=== PATIENT | female | born 1960 | race Caucasian/White ===

== ENCOUNTER → 2017-08-15 | Outpatient (CLI) | payer OTHER ==
[~2017-08-15] MED LIST: ASPI81TA28 PO; ATEN-173 PO; BUSP15TA70 PO; FLUT0.15 NAE; LISI-729 PO; MULT-506 PO; OMEG10007 PO; SIMV20TA2 PO
[2017-08-15 09:47] LABS: ALBUMIN 3.8 gm/dl (3.4-5.0); ALT/SGPT 35 U/L (12-78); BLOOD UREA NITROGEN 11 mg/dl (7-18); CALCIUM 9.1 mg/dl (8.5-10.1); CARBON DIOXIDE 26 mmol/L (21-32); CHOLESTEROL 179 mg/dl (0-200); CREATININE 1.01 mg/dl (0.60-1.20); GLUCOSE,FASTING 98 mg/dl (70-99); SODIUM 140 mmol/L (136-145)
[2017-08-15 10:07] LABS: ALKALINE PHOSPHATASE 99 U/L (45-117); AST/SGOT 25 U/L (15-37); LDL CHOLESTEROL CALCULATED 112 mg/dl; TOTAL PROTEIN 6.9 gm/dl (6.4-8.2)
== END | disposition home or self-care (01) ==
LOC: C.LAB 08:42
PROVIDERS: ATTEND Physician Assistant
DX: Z00.00 Encounter for general adult medical examination without abnormal findings (principal); E78.5 Hyperlipidemia, unspecified

== ENCOUNTER 2020-09-18 08:37 | Inpatient (IN) ==
--- NOTE | 2020-09-18 08:58 | Emergency Department Note ---
Impression & Plan Pneumonia due to COVID-19 virus, Acute respiratory failure with hypoxia ED Provider Note CHIEF COMPLAINT: Covid +, cough and fatigue HISTORY OF PRESENTING ILLNESS: This is a 60-year-old female who presents to the emergency department by private vehicle with complaint of cough and fatigue over the past several days that has been getting progressively worse. The patient states that she first started developing symptoms about 9 days ago and tested positive for COVID-19 2 days later. She states that her cough has been keeping her up at night and she gets coughing spells where she starts to feel short of breath and dizzy, but she has not passed out. She denies any chest pain or chest tightness. She notes a very mild headache which is frontal, achy in nature, comes and goes, and she currently rates the pain 1/10. She notes that she has been having fairly persistent fevers as well, fever seem to be worse in the morning as high as 102, but seem to go down during the day and do respond to Tylenol and ibuprofen. Patient states that she called her PCP a few days ago about her symptoms and they started her on a Z-Yao which she has been taking. She notes a cough is still very bothersome, which is why she presents to the emergency department today. She last took Tylenol this morning around 6 AM. She has not been placed on any other medications for her symptoms. REVIEW OF SYSTEMS: A complete 10 point review of systems was reviewed with the patient with pertinent positives and negatives as per history of present illness. All else were negative. PAST MEDICAL HISTORY: Hypertension, hyperlipidemia, anxiety, chronic kidney disease, history of gastric ulcer, history of partial hysterectomy SOCIAL HISTORY: Lives at home, she denies tobacco use ALLERGIES: No known allergies PHYSICAL EXAM: CONSTITUTIONAL: Pleasant and cooperative. Nontoxic-appearing and in no acute distress. Well appearing and well nourished. HEENT: Normocephalic, atraumatic. NECK: Supple, full active range of motion without discomfort. RESPIRATORY: Diminished bilaterally with bibasilar crackles and scant wheezes heard on auscultation, no rhonchi or stridor. No tachypnea or labored breathing, no accessory muscle use. Equal expansion bilaterally. CARDIOVASCULAR: Regular rate and rhythm with no murmurs, rubs or gallops. Normal peripheral perfusion. No edema. GASTROINTESTINAL: Soft, nontender, nondistended. No palpable masses or HSM. Bowel sounds present in all quadrants. No CVA tenderness bilaterally. MUSCULOSKELETAL: Full range of motion of all joints without discomfort. INTEGUMENTARY: No rash or other significant dermatologic conditions noted. NEUROLOGIC: Alert and oriented X 4 with normal affect. Normal strength and sensation in all 4 extremities. Normal speech. Normal gait observed. ED COURSE AND MEDICAL DECISION MAKING: CC: Patient presenting with complaint of cough and fatigue, Covid-19 DIFFERENTIAL DIAGNOSIS: Includes, but not limited to COVID-19 infection, bronc hitis, pneumonia, pulmonary edema, pleural effusion, pulmonary embolism, acute coronary syndrome, asthma, among others. INTERPRETATION OF LABS: No leukocytosis, no anemia, normal platelets, no signif icant electrolyte abnormalities, normal renal function, elevated AST with otherwise normal liver enzymes. Troponin is negative. EKG INTERPRETATION: Shows normal sinus rhythm with a rate of 92 bpm, normal intervals, no ST elevation or depression, no ectopy, no significant change when compared to previous EKG from 01/06/2016 by my interpretation. MEDICATION RECONCILIATION: I attest that I have personally reviewed the patient's current medication list. INITIAL VITAL SIGNS REVIEW: I reviewed the patient's initial vital signs and interpret them as follows: T: Afebrile; BP: Normotensive; HR: Within normal limits; RR: Within normal limits; Pulse Ox: Within normal limits on room air. MDM SUMMARY: Patient was evaluated in room A4 at bedside, history and physical exam performed. Full COVID-19 precautions were followed. Patient is alert and oriented, no acute distress, resting calmly in stretcher. Patient is afebrile and nontoxic-appearing, does not appear to be dehydrated clinically. Patient does not appear to be clinically short of breath, though she has noted to have several coughing spells where she states that she feels short of breath. Her sats are noted to be 91 to 93% on room air on initial evaluation and she appears to have a normal respiratory effort. Cardiac monitoring: An order was placed for continuous cardiac monitoring. The monitor shows a rate of 81 bpm with normal sinus rhythm. The patient has been sick for at least 9 days and tested positive for COVID-19, I suspect this is the cause of her symptoms. Orders were placed for labs, DuoNeb treatment for cough and wheezing, p.o. prednisone 60 mg and Tessalon Perles 100 mg p.o. for coughing, EKG and chest x- ray to evaluate for cough and shortness of breath. Patient discussed with Dr. Lowery, who agrees with my assessment, plan, and disposition. Labs and imaging reviewed, labs are fairly unremarkable. Chest x-ray shows bilateral opacities consistent with viral pneumonia, which fits with her current COVID-19 infection. Nursing staff notified me that the patient dropped her oxygen level to 83% while ambulating to the bathroom and became visibly more short of breath. I did reassess the patient, she is now on 2 L nasal cannula and appears comfortable. I discussed CT imaging to rule out a blood clot, the patient was agreeable with this plan. CTA of the chest was reviewed and was negative for PE. Patient reassessed multiple times throughout ED stay, she has remained hemodynamically stable and feels significantly improved on the oxygen. The patient is short of breath on room air at rest, oxygen saturation is 83% with minimal exertion, patient is positive for COVID-19 and she requires oxygen. I discussed the options of admission versus discharge home with oxygen, the patient initially states that she prefers to go home. I spoke with Wilfrid, the solution design and analysis manager, who is arranging home oxygen for the patient. After talking with the patient again, she has changed her mind and feels she would rather be admitted. I spoke with Dr. Aburto, [facility] hospitalist, who agrees to admit the patient. The patient was stable at time of admission. The chart was completed utilizing kidthing Speech voice recognition software. Grammatical errors, random word insertions, pronoun errors, and incomplete sentences are an occasional consequence of this system due to software limitations, ambient noise, and hardware issues. Any formal questions or concerns about the content, text, or information contained within the body of this dictation should be directly addressed to the nurse practitioner for clarification. Past Med/Surg History Medical History (Updated 09/18/20 @ 16:04 by Mike Aburto MD) Anxiety Chronic kidney disease, stage 3 (moderate) COVID-19 (~09/11/20) History of gastric ulcer Hyperlipidemia Hypertension Seasonal allergies Surgical History History of hysterectomy PARTIAL S/P tonsillectomy 1998 Family History Mother Cardiac disorder Stroke Diabetes Myocardial infarction Brother Depression Diabetes Hypertension Father Prostate cancer Myocardial infarction Brother Solitary fibrous tumor Social History Smoking Status: Never smoker Hx Alcohol Use: Yes Alcohol type: other Alcohol Intake Frequency: Monthly or Less Hx Substance Use: No Preferred Language: Turkish Communication Ability: Effective Visual Impairment: No Limitations Hearing Ability: Normal Sales Representative Graphic Art Required: No Beliefs That Will Affect Care: None marital status: Legally Current Living Situation: Family and Other Current Living Situation Comment: LIVES WITH son current occupational status: employed current occupation: H[employer] RES[employer] Other Information That Helps Us Care for You: No Feels Safe at Home: Yes Safety Concerns: Feels Safe At This Time Dental Care, Regularly: Yes Physical Activity Frequency: Does not Exercise Seatbelt Use: always Sunscreen Use: No Assistive Devices: Glasses Allergies Allergies Allergy/AdvReac Type Severity Reaction Status Date / Time No Known Allergies Allergy Unverified 09/18/20 09:47 Home Meds Home Medications Medication Instructions Recorded Confirmed aspirin 81 mg tablet,delayed 81 mg PO HS 02/15/19 09/18/20 release fluticasone propionate 50 1 sprays INTNAS BID gm 02/15/19 09/18/20 mcg/actuation nasal spray,suspension omega-3 fatty acids 1 tab PO DAILY 02/15/19 09/18/20 Previous Rx's Medication Instructions Recorded buspirone 15 mg tablet 15 mg PO BID #180 tab 03/21/20 lisinopril 5 mg tablet 5 mg PO DAILY #90 tab 03/21/20 metoprolol succinate 50 mg 50 mg PO DAILY #90 tab 03/21/20 tablet,extended release 24 hr simvastatin 20 mg tablet 20 mg PO QPM #90 tab 03/21/20 azithromycin 250 mg tablet See Rx Instructions PO .COMPLEX #6 09/16/20 tab Results & Data (ED) Vital Signs Vital Signs - 24 hr 09/18/20 08:39 09/18/20 10:00 09/18/20 10:11 Temperature 37.4 C Temperature Source Oral Pulse Rate 81 Pulse Rate [Right] 84 76 Pulse Rate from SpO2 Sensor Pulse Rhythm [Right] Regular Pulse Strength [Right] Normal Respiratory Rate 18 17 20 Respiratory Effort / Characteristics Non-Labored Spontaneous Non-Labored Spontaneous Respiratory Depth Normal Respiratory Pattern Regular Blood Pressure 112/73 Blood Pressure [Left Arm] 130/69 Blood Pressure Mean 86 Blood Pressure Mean [Left Arm] 89 Blood Pressure Position [Left Arm] Lying Pulse Oximetry 91 94 92 Oxygen Delivery Method Room Air Room Air Room Air Oxygen Flow Rate Sepsis Recent Fever Within 48 Hours Yes Sepsis New/Unexplained Change in Mental Status N/A Sepsis Action Taken by Nursing No Action Required Oxygen Flow Rate - Titration Pulse Oximetry Post Tiitration 09/18/20 10:38 09/18/20 11:00 09/18/20 11:30 Temperature Temperature Source Pulse Rate 82 82 83 Pulse Rate [Right] Pulse Rate from SpO2 Sensor 82 83 84 Pulse Rhythm [Right] Pulse Strength [Right] Respiratory Rate 25 H 23 24 Respiratory Effort / Characteristics Respiratory Depth Respiratory Pattern Blood Pressure 130/69 131/66 118/77 Blood Pressure [Left Arm] Blood Pressure Mean 89 87 90 Blood Pressure Mean [Left Arm] Blood Pressure Position [Left Arm] Pulse Oximetry 91 92 90 Oxygen Delivery Method Oxygen Flow Rate Sepsis Recent Fever Within 48 Hours Sepsis New/Unexplained Change in Mental Status Sepsis Action Taken by Nursing Oxygen Flow Rate - Titration Pulse Oximetry Post Tiitration 09/18/20 11:59 09/18/20 12:00 09/18/20 12:30 Temperature Temperature Source Pulse Rate 83 84 Pulse Rate [Right] Pulse Rate from SpO2 Sensor 83 87 Pulse Rhythm [Right] Pulse Strength [Right] Respiratory Rate 20 23 Respiratory Effort / Characteristics Respiratory Depth Respiratory Pattern Blood Pressure 135/68 145/73 H Blood Pressure [Left Arm] Blood Pressure Mean 90 97 Blood Pressure Mean [Left Arm] Blood Pressure Position [Left Arm] Pulse Oximetry 83 L 93 97 Oxygen Delivery Method Room Air Oxygen Flow Rate 0 Sepsis Recent Fever Within 48 Hours Sepsis New/Unexplained Change in Mental Status Sepsis Action Taken by Nursing Oxygen Flow Rate - Titration 2 Pulse Oximetry Post Tiitration 93 09/18/20 12:56 09/18/20 13:00 09/18/20 14:00 Temperature Temperature Source Pulse Rate 90 93 H Pulse Rate [Right] 90 Pulse Rate from SpO2 Sensor 90 93 H Pulse Rhythm [Right] Regular Pulse Strength [Right] Normal Respiratory Rate 19 24 Respiratory Effort / Characteristics Non-Labored Spontaneous Respiratory Depth Normal Respiratory Pattern Regular Blood Pressure 169/93 H 145/87 H Blood Pressure [Left Arm] 138/71 Blood Pressure Mean 118 106 Blood Pressure Mean [Left Arm] 93 Blood Pressure Position [Left Arm] Lying Pulse Oximetry 96 95 92 Oxygen Delivery Method Nasal Cannula Nasal Cannula Oxygen Flow Rate 2 2 Sepsis Recent Fever Within 48 Hours Sepsis New/Unexplained Change in Mental Status Sepsis Action Taken by Nursing Oxygen Flow Rate - Titration Pulse Oximetry Post Tiitration 09/18/20 14:30 Temperature Temperature Source Pulse Rate 88 Pulse Rate [Right] Pulse Rate from SpO2 Sensor 88 Pulse Rhythm [Right] Pulse Strength [Right] Respiratory Rate 21 Respiratory Effort / Characteristics Respiratory Depth Respiratory Pattern Blood Pressure 138/71 Blood Pressure [Left Arm] Blood Pressure Mean 93 Blood Pressure Mean [Left Arm] Blood Pressure Position [Left Arm] Pulse Oximetry 90 Oxygen Delivery Method Oxygen Flow Rate Sepsis Recent Fever Within 48 Hours Sepsis New/Unexplained Change in Mental Status Sepsis Action Taken by Nursing Oxygen Flow Rate - Titration Pulse Oximetry Post Tiitration Laboratory Data Result diagrams: 09/18/20 09:50 09/18/20 09:50 Lab Results 09/18/20 09/18/20 Range/Units 09:50 09:50 WBC 5.42 (4.8-10.8) K/uL RBC 4.55 (4.2-5.4) M/uL Hgb 13.9 (12.0-16.0) g/dL Hct 40.7 (37-47) % MCV 89.5 (80-100) fL MCH 30.5 (25-34) pg MCHC 34.2 (32-36) g/dL RDW Std Deviation 43.0 (36.4-46.3) fL RDW Coeff of Kamila 13.1 (11.5-14.5) % Plt Count 298 (130-400) K/uL MPV 9.1 (7.4-10.4) fL Immature Gran % (Auto) 0.2 % Neut % (Auto) 87.3 % Lymph % (Auto) 10.1 % Green % (Auto) 2.2 % Eos % (Auto) 0.0 % Baso % (Auto) 0.2 % Neut # (Auto) 4.73 (1.4-6.5) K/uL Lymph # (Auto) 0.55 L (1.2-3.4) K/uL Green # (Auto) 0.12 (0.11-0.59) K/uL Eos # (Auto) 0.00 (0-0.5) K/uL Baso # (Auto) 0.01 (0-0.2) K/uL Immature Gran # (Auto) 0.01 (0.00-0.02) K/uL Sodium 136 (136-145) mmol/L Potassium 3.5 (3.5-5.1) mmol/L Chloride 103 (98-107) mmol/L Carbon Dioxide 28 (21-32) mmol/L Anion Gap 5.0 (3-11) BUN 11 (7-18) mg/dl Creatinine 0.90 (0.6-1.2) mg/dl Est Cr Clr Drug Dosing 74.4 ml/min Est GFR ( Amer) 80.0 Est GFR (Non-Af Amer) 69.0 BUN/Creatinine Ratio 12.5 (10-20) Glucose 98 (70-99) mg/dl Calcium 8.6 (8.5-10.1) mg/dl Total Bilirubin 0.5 (0.2-1) mg/dl AST 91 H (15-37) U/L ALT 52 (12-78) U/L Alkaline Phosphatase 89 (45-117) U/L Troponin I 0.016 (0-0.045) ng/ml Total Protein 6.5 (6.4-8.2) gm/dl Albumin 2.8 L (3.4-5.0) gm/dl Globulin 3.7 (2.5-4.0) gm/dl Albumin/Globulin Ratio 0.8 L (0.9-2) Administered Medications Discontinued Medications Acetaminophen (Acetaminophen Home Pack 500 Mg Tablet) 1 homepack PO NOW ONE Stop: 09/18/20 14:30 Last Admin: 09/18/20 15:08 Dose: Not Given Documented by: [id number] Albuterol (Albut/Ipratrop 3mg/0.5mg Neb 3 Ml Vial) 3 ml INH NOW STA Stop: 09/18/20 09:37 Last Admin: 09/18/20 10:10 Dose: 3 ml Documented by: [id number] Benzonatate (Benzonatate 100 Mg Capsule) 100 mg PO NOW ONE Stop: 09/18/20 09:37 Last Admin: 09/18/20 10:36 Dose: 100 mg Documented by: [id number] Ioversol (Optiray 350 500ml) 115 ml IV ONCE ONE Stop: 09/18/20 13:25 Last Admin: 09/18/20 13:24 Dose: 115 ml Documented by: [id number] Prednisone (Prednisone 20 Mg Tab) 60 mg PO NOW STA Stop: 09/18/20 09:37 Last Admin: 09/18/20 10:36 Dose: 60 mg Documented by: [id number] Imaging Data Radiologist's Impression: Chest X-Ray 09/18/20 09:36 XR chest 1V portable HISTORY: 60 years-old Female cough, fevers, +COVID acute cough with fever. C OVID Positive. COMPARISON: Chest radiograph 01/06/2016 TECHNIQUE: Portable AP view of the chest FINDINGS: Cardiac silhouette is upper limits of normal in size. Right greater than left bilateral interstitial and ill-defined airspace opacities are noted within a peripheral predominant distribution. No pneumothorax or pleural effusion. Bones appear grossly intact. IMPRESSION: Bilateral pulmonary opacities suggestive of multifocal pneumonia, likely viral etiology. ACT 112: Negative or not required by law. The above report was generated using voice recognition software. It may contain grammatical, syntax or spelling errors. Electronically signed by: Chintan Alarcon M.D. 09/18/2020 10:10 AM Chest CTA 09/18/20 12:52 CT ANGIOGRAM OF THE CHEST CLINICAL HISTORY: Hypoxia. Shortness of breath. Covid positive patient. COMPARISON STUDY: Chest x-ray dated 09/18/2020 TECHNIQUE: Following the IV administration of 115 mL of Optiray, CT angiogram of the thorax was performed from the thoracic inlet to the lung bases utilizing the pulmonary embolus protocol. Images are reviewed in the axial, sagittal, and coronal planes. IV contrast was administered without complication. MIP imaging was performed. A dose lowering technique was utilized adhering to the principles of ALARA. CT DOSE: 549.76 mGycm FINDINGS: There is mild hepatic steatosis. There is small hiatal hernia. There are mildly enlarged mediastinal and hilar lymph nodes, likely reactive. There was no evidence of thoracic aortic dilatation. There are no pulmonary artery filling defects to indicate acute pulmonary embolism. The study is limited from a technical standpoint due to respiratory motion artifact. No pleural effusions are visualized. There are bilateral multifocal groundglass pulmonary opacities consistent with a multifocal pneumonia. Findings are consistent with the clinical diagnosis of Covid 19 pneumonia. IMPRESSION: 1. No evidence of acute pulmonary embolism given the technical limitations of a motion degraded study 2. Bilateral multifocal groundglass pulmonary opacities consistent with a multifocal pneumonia 3. Mild mediastinal and hilar lymphadenopathy likely reactive ACT 112: Negative or not required by law. Electronically signed by: Yves Salvador M.D. 09/18/2020 1:37 PM Discharge Plan Visit Data Chief Complaint: Illness Stated Complaint: POSITIVE FOR COVID/NOT FEELING WELL ED Provider: Ofelia Lowery ED Midlevel Provider: Chiquita Méndez Discharge Problem: Pneumonia due to COVID-19 virus, Acute respiratory failure with hypoxia Patient Disposition: Admitted As Inpatient Condition: Good COVID Tier Tier I: No follow up necessary. Covid Fact Sheet / ED Discharge Instructions only Tier II: Self-Monitoring Kit, Temp 2x day/pulse ox q8 hrs. Followup call in 24 hrs. Tier III: Self-Monitoring Kit, Temp 2x day/pulse ox q4 hours, with Home Oxygen, Followup call @ 8 & 24hrs. Telehealth Followup in 48hrs ED COVID Discharge Tier: Tier III: Stable for D/C. Given a Self-Mon Kit. Oxygen & 2 Call Backs
[2020-09-18] MEDS ORDERED: ALBUT/IPRATROP 3MG/0.5MG NEB 3 ML VIAL INH STA (09:36)
[2020-09-18] MEDS ORDERED: BENZONATATE 100 MG CAPSULE PO ONE (09:36)
[2020-09-18] MEDS ORDERED: predniSONE 20 MG TAB PO STA (09:36)
[2020-09-18 10:07] LABS: Basophils # (auto) 0.01 K/uL (0-0.2); Basophils % (auto) 0.2 %; Hematocrit (blood only) 40.7 % (37-47); Hemoglobin 13.9 g/dL (12.0-16.0); Immature Granulocytes # (auto) 0.01 K/uL (0.00-0.02); Immature Granulocytes % (auto) 0.2 %; Lymphocytes # (auto) 0.55 K/uL (1.2-3.4); Lymphocytes % (auto) 10.1 %; Mean Corpuscular Hemoglobin 30.5 pg (25-34); Mean Corpuscular Hgb Conc 34.2 g/dL (32-36); Mean Corpuscular Volume 89.5 fL (80-100); Mean Platelet Volume 9.1 fL (7.4-10.4); Monocytes # (auto) 0.12 K/uL (0.11-0.59); Monocytes % (auto) 2.2 %; Neutrophils # (auto) 4.73 K/uL (1.4-6.5); Neutrophils % (auto) 87.3 %; Platelet Count 298 K/uL (130-400); RDW Coefficient of Variation 13.1 % (11.5-14.5); Red Blood Count 4.55 M/uL (4.2-5.4); White Blood Count 5.42 K/uL (4.8-10.8)
--- NOTE | 2020-09-18 10:11 | XRay Report ---
XR chest 1V portable HISTORY: 60 years-old Female cough, fevers, +COVID acute cough with fever. COVID Positive. COMPARISON: Chest radiograph 01/06/2016 TECHNIQUE: Portable AP view of the chest FINDINGS: Cardiac silhouette is upper limits of normal in size. Right greater than left bilateral interstitial and ill-defined airspace opacities are noted within a peripheral predominant distribution. No pneumot horax or pleural effusion. Bones appear grossly intact. IMPRESSION: Bilateral pulmonary opacities suggestive of multifocal pneumonia, likely viral etiology. ACT 112: Negative or not required by law. The above report was generated using voice recognition software. It may contain grammatical, syntax o r spelling errors. Electronically signed by: Chintan Alarcon M.D. 09/18/2020 10:10 AM
[2020-09-18 10:42] LABS: Albumin Level 2.8 gm/dl (3.4-5.0); BUN Creatinine Ratio 12.5 (10-20); Calcium 8.6 mg/dl (8.5-10.1); Creatinine Clr Calc Pharmacy 74.4 ml/min; Potassium 3.5 mmol/L (3.5-5.1)
[2020-09-18 10:46] LABS: Albumin Globulin Ratio 0.8 (0.9-2); Bilirubin,Total 0.5 mg/dl (0.2-1); Globulin 3.7 gm/dl (2.5-4.0); Total Protein 6.5 gm/dl (6.4-8.2); Troponin I 0.016 ng/ml (0-0.045)
[2020-09-18] MEDS ORDERED: OPTIRAY 350 500ml IV ONE (13:24)
--- NOTE | 2020-09-18 13:38 | CT Scan Report ---
CT ANGIOGRAM OF THE CHEST CLINICAL HISTORY: Hypoxia. Shortness of breath. Covid positive patient. COMPARISON STUDY: Chest x-ray dated 09/18/2020 TECHNIQUE: Following the IV administration of 115 mL of Optiray, CT angiogram of the thorax was perfo rmed from the thoracic inlet to the lung bases utilizing the pulmonary embolus protocol. Images are r eviewed in the axial, sagittal, and coronal planes. IV contrast was administered without complication . MIP imaging was performed. A dose lowering technique was utilized adhering to the principles of AL RAJEEV. CT DOSE: 549.76 mGycm FINDINGS: There is mild hepatic steatosis. There is small hiatal hernia. There are mildly enlarged mediastinal and hilar lymph nodes, likely reactive. There was no evidence of thoracic aortic dilatation. There are no pulmonary artery filling defects to indicate acute pulmonary embolism. The study is limi mary ann from a technical standpoint due to respiratory motion artifact. No pleural effusions are visualized. There are bilateral multifocal groundglass pulmonary opacities consistent with a multifocal pneumonia . Findings are consistent with the clinical diagnosis of Covid 19 pneumonia. IMPRESSION: 1. No evidence of acute pulmonary embolism given the technical limitations of a motion degraded study 2. Bilateral multifocal groundglass pulmonary opacities consistent with a multifocal pneumonia 3. Mild mediastinal and hilar lymphadenopathy likely reactive ACT 112: Negative or not required by law. Electronically signed by: Yves Salvador M.D. 09/18/2020 1:37 PM
[2020-09-18] MEDS ORDERED: ACETAMINOPHEN HOME PACK 500 MG TABLET PO ONE (14:29)
--- NOTE | 2020-09-18 14:51 | History & Physical Report ---
Date of Service September 18, 2020 Assessment & Plan (1) Pneumonia due to COVID-19 virus: Admitted on day 9 of illness Prednisone 60mg PO given in ER today. Will continue steroids with dexamethasone 6mg IV daily starting tomorrow for total of 10 days or until discharge. Procalcitonin pending. Will finish current course of azithromycin for 2 further days (QTc 487ms). Self prone as able. (2) Hypoxia: Without respiratory distress on admission Aim O2 sats > 94% (3) Hypertension: Continue her usual metoprolol succinate 50 mg p.o. daily to avoid rebound tachycardia We will discontinue lisinopril to avoid hypotension (4) Anxiety: Continue her usual BuSpar 15 mg p.o. twice daily (5) Hyperlipidemia: Continue simvastatin 20 mg p.o. every afternoon (6) DVT prophylaxis: Lovenox 40mg SQ BID History of Present Illness Chief Complaint: COVID-19 pneumonia Primary Care Provider: Marisabel Martins DO Paris Santos is a 60 year old female who presents to the ER with ongoing symptoms of COVID-19 pneumonia. Symptom onset 09/10/20. Tested positive 09/11/20. She reports ongoing fever, chills, shortness of breath, nonproductive cough, loss of taste and smell, generalized fatigue, diarrhea, nausea. No significant nasal congestion, sore throat, headache, chest or abdominal pain. She is not vaccinated. Reports likely transmission from her son who she lives with. She reports she was feeling slightly better up until 5 days ago when she has been progressively getting worse. In the ER she has been borderline hypoxic on room air however on ambulation her oxygen saturations dropped to 83%. Given the appearance on CT scan, elevated CRP and hypoxia on exertion she was referred to medicine for admission ongoing management of COVID-19 pneumonia. Allergies Allergy/AdvReac Type Severity Reaction Status Date / Time No Known Allergies Allergy Unverified 09/18/20 09:47 Home Medications Medication Instructions Recorded Confirmed Type aspirin 81 mg tablet,delayed 81 mg PO HS 02/15/19 09/18/20 History release fluticasone propionate 50 1 sprays INTNAS BID gm 02/15/19 09/18/20 History mcg/actuation nasal spray,suspension omega-3 fatty acids 1 tab PO DAILY 02/15/19 09/18/20 History buspirone 15 mg tablet 15 mg PO BID #180 tab 03/21/20 09/18/20 Rx lisinopril 5 mg tablet 5 mg PO DAILY #90 tab 03/21/20 09/18/20 Rx metoprolol succinate 50 mg 50 mg PO DAILY #90 tab 03/21/20 09/18/20 Rx tablet,extended release 24 hr simvastatin 20 mg tablet 20 mg PO QPM #90 tab 03/21/20 09/18/20 Rx azithromycin 250 mg tablet See Rx Instructions PO .COMPLEX #6 09/16/20 09/18/20 Rx tab Past Med/Surg History Medical History (Updated 09/18/20 @ 23:36 by Mike Aburto MD) Anxiety Chronic kidney disease, stage 3 (moderate) COVID-19 (~09/11/20) History of gastric ulcer Hyperlipidemia Hypertension Seasonal allergies Surgical History History of hysterectomy PARTIAL S/P tonsillectomy 1998 Family History Mother Cardiac disorder Stroke Diabetes Myocardial infarction Brother Depression Diabetes Hypertension Father Prostate cancer Myocardial infarction Brother Solitary fibrous tumor Social History Smoking Status: Never smoker Hx Alcohol Use: Yes Alcohol type: other Alcohol Intake Frequency: Monthly or Less Hx Substance Use: No Preferred Language: Bulgarian Communication Ability: Effective Visual Impairment: No Limitations Hearing Ability: Normal White Washer Required: No Beliefs That Will Affect Care: None marital status: Legally Current Living Situation: Family and Other Current Living Situation Comment: LIVES WITH son current occupational status: employed current occupation: [employer] Other Information That Helps Us Care for You: No Feels Safe at Home: Yes Safety Concerns: Feels Safe At This Time Dental Care, Regularly: Yes Physical Activity Frequency: Does not Exercise Seatbelt Use: always Sunscreen Use: No Assistive Devices: Oxygen - Continuous Review of Systems Review of Systems: All systems reviewed & are unremarkable except as noted in HPI & below Physical Exam Constitutional: WD/WN, vitals as above Eyes: PERRL, conjunctivae normal, anicteric sclerae ENMT: external ear and nose normal, oropharynx normal Neck: trachea midline, no thyromegaly Respiratory: normal respiratory effort Auscultation: + crackles (Posteriorly throughout); no diminished lung sounds Cardiovascular: RRR, no murmur, no edema Gastrointestinal (Abdomen): normal bowel sounds, soft, nontender, no hepatosplenomegaly Musculoskeletal: no cyanosis or clubbing, extremities motor strength 5/5 Skin: no rashes, warm and dry Neurologic: moves all extremities and awake; not confused Psychiatric: A+Ox3, euthymic affect Genitourinary: no CVA tenderness Results & Data Results & Data ([facility]) Vital Signs (Past 12 Hours) Vital Signs Temp Pulse Pulse Resp BP BP Pulse Ox 09/18/20 12:56 96 09/18/20 12:30 84 23 145/73 H 97 09/18/20 12:00 83 20 135/68 93 09/18/20 11:59 83 L 09/18/20 11:30 83 24 118/77 90 09/18/20 11:00 82 23 131/66 92 09/18/20 10:38 82 25 H 130/69 91 09/18/20 10:11 76 20 92 09/18/20 10:00 84 17 130/69 94 09/18/20 08:39 37.4 C 81 18 112/73 91 Diagnostic Findings XR chest 1V portable IMPRESSION: Bilateral pulmonary opacities suggestive of multifocal pneumonia, likely viral etiology. CT ANGIOGRAM OF THE CHEST IMPRESSION: 1. No evidence of acute pulmonary embolism given the technical limitations of a motion degraded study 2. Bilateral multifocal groundglass pulmonary opacities consistent with a multifocal pneumonia 3. Mild mediastinal and hilar lymphadenopathy likely reactive Medications Administered ER medications given: DuoNeb 3 mL nebulizer Prednisone 60 mg p.o. Tessalon Perle 100 mg PO ECG Indication: SOB/dyspnea Rate (beats per minute): 92 Rhythm: normal sinus Findings: no acute ischemic change Comparison ECG Date: from (January 06, 2016) Change: no significant change Code Status & VTE Plan Code Status Full VTE Prophylaxis Plan VTE Prophylaxis will be ordered: Yes PG Care Time/CCT Total # of Minutes Spent Total Time Spent with Patient: Total time spent is greater than 50% in coordination of care (as documented) at patient's floor/unit and/or counseling patient: Coding Level of Care Code 12189 Initial Inpt Care Lvl 3 Diagnoses Pneumonia due to COVID-19 virus U07.1; J12.82 Hypoxia R09.02 Hypertension I10 Anxiety F41.9 Hyperlipidemia E78.5 Hyperlipidemia type: unspecified DVT prophylaxis Z29.9 (1) Hyperlipidemia Hyperlipidemia type: unspecified Qualified Code(s): E78.5 - Hyperlipidemia, unspecified
[2020-09-18] MEDS ORDERED: ALUMINUM/MAGNESIUM SUSP 30 ML UDC PO PRN (16:41)
[2020-09-18] MEDS ORDERED: POLYETHYLENE (MIRALAX) 17 GM PACK PO PRN (16:41)
[2020-09-18] MEDS ORDERED: ONDANSETRON INJ 2 MG/ML 2 ML VIAL IV PRN (16:41)
[2020-09-18] MEDS ORDERED: ACETAMINOPHEN 325 MG TAB PO PRN (16:41)
[2020-09-18] MEDS: SIMVASTATIN 20 MG TAB PO SCH (20:24)
[2020-09-18] MEDS: ASPIRIN 81 MG ECTAB PO SCH (20:24)
[2020-09-18] MEDS: ENOXAPARIN INJ 40 MG/0.4 ML SYR SQ SCH (20:24)
[2020-09-18] MEDS: busPIRone 15 MG TAB PO SCH (20:24)
[2020-09-19 04:55] LABS: Appearance Urine Clear (Clear); Bacteria Urine Automated Negative (Negative); Bilirubin Urine Negative (Negative); Blood Urine 1+ (Negative); Color Urine Yellow; Epithelial Cell Urine Auto >30 /lpf (0-5); Glucose Urine UA Negative (Negative); Ketones Urine Negative (Negative); Leukocyte Esterase Urine Negative (Negative); Nitrite Urine Negative (Negative); Protein Urine 2+ (Negative); Specific Gravity Urine 1.026 (1.000-1.030); Urobilinogen Urine Negative (Negative)
[2020-09-19] MEDS ORDERED: BENZONATATE 100 MG CAPSULE ONE (07:29)
[2020-09-19] MEDS: OMEGA-3 (PURIFIED FISH OIL) 1 GM CAP PO SCH (08:20)
[2020-09-19] MEDS: busPIRone 15 MG TAB PO SCH ×2 (08:20→21:11)
[2020-09-19] MEDS: METOPROLOL SUCC 50MG EXT REL TAB PO SCH (08:20)
[2020-09-19] MEDS: dexAMETHasone 6 MG in SYRINGE 0 ML IV SCH (08:20)
[2020-09-19] MEDS: ENOXAPARIN INJ 40 MG/0.4 ML SYR SQ SCH ×2 (08:21→21:14)
[2020-09-19] MEDS: AZITHROMYCIN 250 MG TAB PO SCH (08:21)
[2020-09-19 08:25] LABS: BUN Creatinine Ratio 16.1 (10-20); C Reactive Protein 13.3 mg/dl (0-0.29); Calcium 8.8 mg/dl (8.5-10.1); Creatinine Clr Calc Pharmacy 75.2 ml/min; Est GFR (African American) 81.1 ml/min; Potassium 3.2 mmol/L (3.5-5.1)
[2020-09-19] MEDS: BENZONATATE 100 MG CAPSULE PO SCH ×3 (10:59→21:10)
--- NOTE | 2020-09-19 11:06 | Hospitalist Progress Note ---
Date of Service September 19, 2020 Assessment & Plan (1) Pneumonia due to COVID-19 virus: Admitted on day 9 of illness continue dexamethasone 6mg IV daily x 10 days total CRP down to 13 from 17, repeat tomorrow laying prone, breathing well on 5L Codeine and Tessalon for cough suppression encourage incentive spirometer (2) Hypoxia: acute hypoxic respiratory failure due to COVID 19 stable on 5L today, try to titrate down as tolerated laying prone (3) Hypertension: Continue her usual metoprolol succinate 50 mg p.o. daily and Lisinopril 5mg daily (4) Anxiety: Continue her usual BuSpar 15 mg p.o. twice daily (5) Hyperlipidemia: Continue simvastatin 20 mg p.o. every afternoon (6) DVT prophylaxis: Lovenox 40mg SQ BID (7) Hypokalemia: low at 3.2, add potassium 20 TID x 4 doses total Admission and Anticipated Discharge Date Admission Date: September 18, 2020 Subjective patient admitted yesterday, reviewed chart, sick since 09/10, tested positive on 09/11, she is not vaccinated she says she is feeling a little better since admission she ate a little eggs this morning she is coughing a lot, no sputum, got relief with Codeine and Tessalon K is 3.2, Cr is 0.89, CRP down to 13 from 17 on admission she is laying prone, doing well with is, I encouraged her to do this as much as possible discussed that COVID takes time to resolve, anticipate being here several days to a week Review of Systems Review of Systems: All systems reviewed & are unremarkable except as noted in Subjective Constitutional: + fatigue and + weakness; no fever, no chills and no sweats Respiratory: + cough, + dyspnea and + dyspnea on exertion; no pain with cough Cardiovascular: no chest pain and no edema Gastrointestinal: no abdominal pain, no nausea, no vomiting, no constipation and no diarrhea/loose stools Physical Exam Constitutional: well developed, + ill appearing, + obese and comfortable; no acute distress Neck: trachea midline, no thyromegaly Respiratory: normal respiratory effort, lungs clear to auscultation Cardiovascular: RRR, no murmur, no edema Gastrointestinal (Abdomen): normal bowel sounds, soft, nontender, no hepato splenomegaly Musculoskeletal: no cyanosis or clubbing, extremities motor strength 5/5 Skin: no rashes, warm and dry Neurologic: patellar DTR's 2+ bilat, sensation intact and PERRL, EOMI, accommodation nl, no face palsy, no dysarthria Psychiatric: A+Ox3, euthymic affect Lymphatic: no cervical or axillary lymphadenopathy Results & Data Results & Data ([facility]) Vital Signs (Past 12 Hours) Vital Signs Temp Pulse Resp BP Pulse Ox 09/19/20 07:34 37.3 C 98 H 19 172/83 H 91 09/19/20 04:53 22 92 09/19/20 04:52 22 77 L 09/19/20 01:00 37.4 C 09/18/20 23:21 38.0 C H 84 24 121/58 L 92 Laboratory Results Laboratory Results - last 24 hr 09/18/20 09/18/20 09/18/20 14:55 14:55 14:55 Sodium Potassium Chloride Carbon Dioxide Anion Gap BUN Creatinine Est Cr Clr Drug Dosing Est GFR ( Amer) Est GFR (Non-Af Amer) BUN/Creatinine Ratio Glucose Calcium Lactate Dehydrogenase 647 H C-Reactive Protein 17.70 H Procalcitonin 0.20 Urine Color Urine Appearance Urine pH Ur Specific Sharon Urine Protein Urine Glucose (UA) Urine Ketones Urine Blood Urine Nitrite Urine Bilirubin Urine Urobilinogen Ur Leukocyte Esterase Urine WBC (Auto) Urine RBC (Auto) U Hyaline Cast (Auto) U Epithel Cells (Auto) Urine Bacteria (Auto) Ur Renal Epithelial Cell 09/19/20 09/19/20 04:45 07:52 Sodium 137 Potassium 3.2 L Chloride 103 Carbon Dioxide 26 Anion Gap 8.0 BUN 14 Creatinine 0.89 Est Cr Clr Drug Dosing 75.2 Est GFR ( Amer) 81.1 Est GFR (Non-Af Amer) 70.0 BUN/Creatinine Ratio 16.1 Glucose 98 Calcium 8.8 Lactate Dehydrogenase C-Reactive Protein 13.30 H Procalcitonin Urine Color Yellow Urine Appearance Clear Urine pH 6.0 Ur Specific Sharon 1.026 Urine Protein 2+ H Urine Glucose (UA) Negative Urine Ketones Negative Urine Blood 1+ H Urine Nitrite Negative Urine Bilirubin Negative Urine Urobilinogen Negative Ur Leukocyte Esterase Negative Urine WBC (Auto) 1-5 Urine RBC (Auto) 5-10 H U Hyaline Cast (Auto) 1-5 U Epithel Cells (Auto) >30 H Urine Bacteria (Auto) Negative Ur Renal Epithelial Cell Not Reportable Medications Administered Current Inpatient Medications Acetaminophen (Acetaminophen 325 Mg Tab) 650 mg PO Q4H PRN PRN Reason: pain/fever Stop: 10/18/20 16:40 Al Hydrox/Mg Hydrox/Simethicone (Aluminum/Magnesium Susp 30 Ml Udc) 30 ml PO Q6H PRN PRN Reason: Dyspepsia Stop: 10/18/20 16:40 Aspirin (Aspirin 81 Mg Ectab) 81 mg PO HS [facility] Stop: 10/18/20 20:59 Last Admin: 09/18/20 20:24 Dose: 81 mg Documented by: Azithromycin (Azithromycin 250 Mg Tab) 250 mg PO QAM [facility]; Protocol Stop: 09/20/20 09:01 Last Admin: 09/19/20 08:21 Dose: 250 mg Documented by: Benzonatate (Benzonatate 100 Mg Capsule) 100 mg PO TID [facility] Stop: 10/19/20 08:59 Last Admin: 09/19/20 10:59 Dose: Not Given Documented by: Buspirone HCl (Buspirone 15 Mg Tab) 15 mg PO BID [facility] Stop: 10/18/20 20:59 Last Admin: 09/19/20 08:20 Dose: 15 mg Documented by: Enoxaparin Sodium (Enoxaparin Inj 40 Mg/0.4 Ml Syr) 40 mg SQ BID [facility] Stop: 10/18/20 20:59 Last Admin: 09/19/20 08:21 Dose: 40 mg Documented by: Fish Oil ([place]-3 (Purified Fish Oil) 1 Gm Cap) 1 gm PO DAILY [facility] Stop: 10/19/20 08:59 Last Admin: 09/19/20 08:20 Dose: 1 gm Documented by: Guaifenesin/Codeine Phosphate (Guaifenesin/Codeine 200mg/20mg 10ml Udc) 10 ml P O Q6H PRN PRN Reason: Cough Stop: 10/19/20 07:13 Last Admin: 09/19/20 08:20 Dose: 10 ml Documented by: Dexamethasone 6 mg/ Syringe 1.5 mls @ 1 mls/[facility] Stop: 09/28/20 08:59 Last Admin: 09/19/20 08:20 Dose: 1 mls/min Documented by: Lisinopril (Lisinopril 5 Mg Tab) 5 mg PO DAILY [facility] Stop: 10/19/20 11:14 Metoprolol Succinate (Metoprolol Succ 50mg Ext Rel Tab) 50 mg PO DAILY [facility] Stop: 10/19/20 08:59 Last Admin: 09/19/20 08:20 Dose: 50 mg Documented by: Ondansetron HCl (Ondansetron Inj 2 Mg/Ml 2 Ml Vial) 4 mg IV Q6H PRN PRN Reason: Nausea Stop: 10/18/20 16:40 Polyethylene Glycol (Polyethylene (Miralax) 17 Gm Pack) 17 gm PO DAILY PRN PRN Reason: Constipation Stop: 10/18/20 16:40 Potassium Chloride (Potassium Chloride Crtab 20 Meq Tabcr) 20 meq PO TID [facility] Stop: 09/20/20 14:01 Simvastatin (Simvastatin 20 Mg Tab) 20 mg PO QPM [facility] Stop: 10/18/20 20:59 Last Admin: 09/18/20 20:24 Dose: 20 mg Documented by: PG Care Time/CCT Total # of Minutes Spent Total Time Spent: 32 Total Time Spent with Patient: Total time spent is greater than 50% in coordination of care (as documented) at patient's floor/unit and/or counseling patient: Coding Level of Care Code 76339 Subseq Hosp Care Lvl 3 Diagnoses Pneumonia due to COVID-19 virus U07.1; J12.82 Hypoxia R09.02 Hypertension I10 Anxiety F41.9 Hyperlipidemia E78.5 Hyperlipidemia type: unspecified DVT prophylaxis Z29.9 Hypokalemia E87.6 (1) Hyperlipidemia Hyperlipidemia type: unspecified Qualified Code(s): E78.5 - Hyperlipidemia, unspecified
[2020-09-19] MEDS: lisinopril 5 MG TAB PO SCH (12:54)
[2020-09-19] MEDS: POTASSIUM CHLORIDE CRTAB 20 MEQ TABCR PO SCH ×2 (16:43→21:16)
[2020-09-19] MEDS: ASPIRIN 81 MG ECTAB PO SCH (21:11)
[2020-09-19] MEDS: SIMVASTATIN 20 MG TAB PO SCH (21:12)
--- NOTE | 2020-09-19 22:27 | Electrocardiogram Report ---
Test Reason : Blood Pressure : / mmHG Vent. Rate : 092 BPM Atrial Rate : 092 BPM P-R Int : 166 ms QRS Dur : 090 ms QT Int : 376 ms P-R-T Axes : 033 026 014 degrees QTc Int : 466 ms Normal sinus rhythm Possible Left atrial enlargement Borderline ECG When compared with ECG of 06-JAN-2016 20:29, No significant change was found Confirmed by Irvin Almendarez ([id number]) on 09/19/2020 10:26:24 PM Referred By: REFERRED SELF Confirmed By:Irvin Almendarez
[2020-09-20 06:03] LABS: Hematocrit (blood only) 41.1 % (37-47); Hemoglobin 13.7 g/dL (12.0-16.0); Mean Corpuscular Hgb Conc 33.3 g/dL (32-36); Mean Corpuscular Volume 89.9 fL (80-100); Mean Platelet Volume 9.1 fL (7.4-10.4); Platelet Count 385 K/uL (130-400); RDW Coefficient of Variation 13.1 % (11.5-14.5); RDW Standard Deviation 43.3 fL (36.4-46.3); Red Blood Count 4.57 M/uL (4.2-5.4); White Blood Count 6.87 K/uL (4.8-10.8)
[2020-09-20 06:36] LABS: Basophils # (auto) 0.02 K/uL (0-0.2); Basophils % (auto) 0.3 %; Immature Granulocytes # (auto) 0.02 K/uL (0.00-0.02); Immature Granulocytes % (auto) 0.3 %; Lymphocytes # (auto) 0.91 K/uL (1.2-3.4); Lymphocytes % (auto) 13.2 %; Monocytes # (auto) 0.34 K/uL (0.11-0.59); Monocytes % (auto) 4.9 %; Neutrophils # (auto) 5.58 K/uL (1.4-6.5); Neutrophils % (auto) 81.3 %; RBC Morphology Unremarkable
[2020-09-20 06:40] LABS: Albumin Globulin Ratio 0.7 (0.9-2); Albumin Level 2.5 gm/dl (3.4-5.0); BUN Creatinine Ratio 25.3 (10-20); Bilirubin,Total 0.5 mg/dl (0.2-1); C Reactive Protein 9.08 mg/dl (0-0.29); Calcium 8.9 mg/dl (8.5-10.1); Creatinine Clr Calc Pharmacy 84.8 ml/min; Est GFR (African American) 93.6 ml/min; Est GFR (Non-African American) 80.8 ml/min; Globulin 3.7 gm/dl (2.5-4.0); Potassium 3.9 mmol/L (3.5-5.1); Total Protein 6.2 gm/dl (6.4-8.2)
[2020-09-20] MEDS: dexAMETHasone 6 MG in SYRINGE 0 ML IV SCH (07:56)
[2020-09-20] MEDS: ENOXAPARIN INJ 40 MG/0.4 ML SYR SQ SCH ×2 (07:58→21:28)
[2020-09-20] MEDS: METOPROLOL SUCC 50MG EXT REL TAB PO SCH (07:59)
[2020-09-20] MEDS: BENZONATATE 100 MG CAPSULE PO SCH ×3 (07:59→21:25)
[2020-09-20] MEDS: lisinopril 5 MG TAB PO SCH (07:59)
[2020-09-20] MEDS: OMEGA-3 (PURIFIED FISH OIL) 1 GM CAP PO SCH (08:00)
[2020-09-20] MEDS: busPIRone 15 MG TAB PO SCH ×2 (08:00→21:25)
[2020-09-20] MEDS: AZITHROMYCIN 250 MG TAB PO SCH ×2 (08:00→09:15)
[2020-09-20] MEDS: POTASSIUM CHLORIDE CRTAB 20 MEQ TABCR PO SCH ×2 (08:03→13:38)
--- NOTE | 2020-09-20 09:12 | Hospitalist Progress Note ---
Date of Service September 20, 2020 Assessment & Plan (1) Pneumonia due to COVID-19 virus: Admitted on day 9 of illness continue dexamethasone 6mg IV daily, day 2 today CRP down to 9 from , repeat tomorrow significant increase in oxygen requirement, up to 15L wall high flow from 5L yesterday no distress or accessory muscle use although she is more tachypneic laying prone as much as possible Codeine and Tessalon for cough suppression encourage incentive spirometer and flutter valve add Mucinex and Zithromax 500mg qAM for thick mucous today (2) Hypoxia: acute hypoxic respiratory failure due to COVID 19 as above, she is up to 15L wall high flow from 5L yesterday more tachypneic but no signs of distress or fatigue laying prone as much as she can, utilize flutter valve, ISB (3) Hypertension: Continue her usual metoprolol succinate 50 mg p.o. daily and Lisinopril 5mg daily (4) Anxiety: Continue her usual BuSpar 15 mg p.o. twice daily (5) Hyperlipidemia: Continue simvastatin 20 mg p.o. every afternoon (6) DVT prophylaxis: Lovenox 40mg SQ BID (7) Hypokalemia: low at 3.2 on 09/19, added potassium 20 TID x 4 doses total K is up to 3.9 today Admission and Anticipated Discharge Date Admission Date: September 18, 2020 Subjective patient requiring more oxygen this morning, up to 15L wall high flow coughing up thick, brown mucous, difficulty clearing secretions working with flutter valve reviewed labs, WBC 6.8, Hb 13.7, plts 385k K 3.9, Cr 0.79, CRP down to 3 from 13 patient feels okay, maybe a little worse but that relates to her cough she ate all her breakfast, no fever/chills, no diarrhea, no chest pain feels short of breath at rest but no accessory muscle use discussed again that this can be normal, require more oxygen due to pneumonia encouraged her to stay strong, focus on what she can control which is eating, laying prone as much as she can, use flutter valve and ISB called her son Galo to provide an update, answered his questions Review of Systems Review of Systems: All systems reviewed & are unremarkable except as noted in Subjective Constitutional: no fever, no chills, no sweats, no fatigue and no weakness Respiratory: + cough, + dyspnea, + dyspnea on exertion and + sputum production; no wheezing Cardiovascular: no chest pain and no edema Gastrointestinal: no abdominal pain, no nausea, no vomiting, no constipation and no diarrhea/loose stools Physical Exam Constitutional: well developed, + ill appearing, + obese and comfortable; no acute distress Neck: trachea midline, no thyromegaly Respiratory: + cough and + tachypneic; no labored breathing and does not use accessory muscles Auscultation: + rhonchi (bilaterally) Cardiovascular: RRR, no murmur, no edema Gastrointestinal (Abdomen): normal bowel sounds, soft, nontender, no hepatosplenomegaly Musculoskeletal: no cyanosis or clubbing, extremities motor strength 5/5 Skin: no rashes, warm and dry Neurologic: patellar DTR's 2+ bilat, sensation intact and PERRL, EOMI, accom modation nl, no face palsy, no dysarthria Psychiatric: A+Ox3, euthymic affect Lymphatic: no cervical or axillary lymphadenopathy Results & Data Results & Data ([facility]) Vital Signs (Past 12 Hours) Vital Signs Temp Pulse Resp BP Pulse Ox 09/20/20 07:15 36.9 C 75 20 144/81 H 90 09/19/20 23:23 36.9 C 73 19 112/56 L 93 Laboratory Results Laboratory Results - last 24 hr 09/20/20 09/20/20 05:30 05:30 WBC 6.87 RBC 4.57 Hgb 13.7 Hct 41.1 MCV 89.9 MCH 30.0 MCHC 33.3 RDW Std Deviation 43.3 RDW Coeff of Kamila 13.1 Plt Count 385 MPV 9.1 Immature Gran % (Auto) 0.3 Neut % (Auto) 81.3 Lymph % (Auto) 13.2 [place] % (Auto) 4.9 Eos % (Auto) 0.0 Baso % (Auto) 0.3 Neut # (Auto) 5.58 Lymph # (Auto) 0.91 L [place] # (Auto) 0.34 Eos # (Auto) 0.00 Baso # (Auto) 0.02 Immature Gran # (Auto) 0.02 RBC Morphology Unremarkable Sodium 140 Potassium 3.9 D Chloride 108 H Carbon Dioxide 26 Anion Gap 6.0 BUN 20 H Creatinine 0.79 Est Cr Clr Drug Dosing 84.8 Est GFR ( Amer) 93.6 Est GFR (Non-Af Amer) 80.8 BUN/Creatinine Ratio 25.3 H Glucose 111 H Calcium 8.9 Total Bilirubin 0.5 AST 97 H ALT 50 Alkaline Phosphatase 82 C-Reactive Protein 9.08 H Total Protein 6.2 L Albumin 2.5 L Globulin 3.7 Albumin/Globulin Ratio 0.7 L Medications Administered Current Inpatient Medications Acetaminophen (Acetaminophen 325 Mg Tab) 650 mg PO Q4H PRN PRN Reason: pain/fever Stop: 10/18/20 16:40 Al Hydrox/Mg Hydrox/Simethicone (Aluminum/Magnesium Susp 30 Ml Udc) 30 ml PO Q6H PRN PRN Reason: Dyspepsia Stop: 10/18/20 16:40 Aspirin (Aspirin 81 Mg Ectab) 81 mg PO HS [facility] Stop: 10/18/20 20:59 Last Admin: 09/19/20 21:11 Dose: 81 mg Documented by: Benzonatate (Benzonatate 100 Mg Capsule) 100 mg PO TID [facility] Stop: 10/19/20 08:59 Last Admin: 09/20/20 07:59 Dose: 100 mg Documented by: Buspirone HCl (Buspirone 15 Mg Tab) 15 mg PO BID [facility] Stop: 10/18/20 20:59 Last Admin: 09/20/20 08:00 Dose: 15 mg Documented by: Enoxaparin Sodium (Enoxaparin Inj 40 Mg/0.4 Ml Syr) 40 mg SQ BID [facility] Stop: 10/18/20 20:59 Last Admin: 09/20/20 07:58 Dose: 40 mg Documented by: Fish Oil ([place]-3 (Purified Fish Oil) 1 Gm Cap) 1 gm PO DAILY [facility] Stop: 10/19/20 08:59 Last Admin: 09/20/20 08:00 Dose: 1 gm Documented by: Guaifenesin/Codeine Phosphate (Guaifenesin/Codeine 200mg/20mg 10ml Udc) 10 ml PO Q6H PRN PRN Reason: Cough Stop: 10/19/20 07:13 Last Admin: 09/20/20 08:03 Dose: 10 ml Documented by: Dexamethasone 6 mg/ Syringe 1.5 mls @ 1 mls/min IV QAM [facility] Stop: 09/28/20 08:59 Last Admin: 09/20/20 07:56 Dose: 1 mls/min Documented by: Lisinopril (Lisinopril 5 Mg Tab) 5 mg PO DAILY [facility] Stop: 10/19/20 11:14 Last Admin: 09/20/20 07:59 Dose: 5 mg Documented by: Metoprolol Succinate (Metoprolol Succ 50mg Ext Rel Tab) 50 mg PO DAILY [facility] Stop: 10/19/20 08:59 Last Admin: 09/20/20 07:59 Dose: 50 mg Documented by: Ondansetron HCl (Ondansetron Inj 2 Mg/Ml 2 Ml Vial) 4 mg IV Q6H PRN PRN Reason: Nausea Stop: 10/18/20 16:40 Polyethylene Glycol (Polyethylene (Miralax) 17 Gm Pack) 17 gm PO DAILY PRN PRN Reason: Constipation Stop: 10/18/20 16:40 Potassium Chloride (Potassium Chloride Crtab 20 Meq Tabcr) 20 meq PO TID [facility] Stop: 09/20/20 14:01 Last Admin: 09/20/20 08:03 Dose: 20 meq Documented by: Simvastatin (Simvastatin 20 Mg Tab) 20 mg PO QPM [facility] Stop: 10/18/20 20:59 Last Admin: 09/19/20 21:12 Dose: 20 mg Documented by: PG Care Time/CCT Total # of Minutes Spent Total Time Spent: 33 Total Time Spent with Patient: Total time spent is greater than 50% in coordination of care (as documented) at patient's floor/unit and/or counseling patient: Coding Level of Care Code 26266 Subseq Hosp Care Lvl 3 Diagnoses Pneumonia due to COVID-19 virus U07.1; J12.82 Hypoxia R09.02 Hypertension I10 Anxiety F41.9 Hyperlipidemia E78.5 Hyperlipidemia type: unspecified DVT prophylaxis Z29.9 Hypokalemia E87.6 (1) Hyperlipidemia Hyperlipidemia type: unspecified Qualified Code(s): E78.5 - Hyperlipidemia, unspecified
[2020-09-20] MEDS ORDERED: TOCILIZUMAB 800 MG in 0.9 % SODIUM CHLORIDE 60 ML IV ONE (16:30)
[2020-09-20 19:44] LABS: iSTAT Allen Test Pass; iSTAT Art Bld Gas pCO2 Correct 34 mmHg (35-46); iSTAT Arterial Blood Gas HCO3 23 meg/L (19-24); iSTAT Arterial Blood Gas pCO2 35 mmHg (35-46); iSTAT Arterial Blood Gas pH 7.43 (7.35-7.45); iSTAT Arterial Blood Gas pO2 80 mmHg (80-95); iSTAT Arterial Blood Gas pO2 C 78; iSTAT Carbon Dioxide 24 mmol/L (24-31); iSTAT FiO2 75 %; iSTAT Hematocrit 38 % (37-47); iSTAT Hemoglobin 12.9 g/dl (12.0-16.0); iSTAT Site L Radial; iSTAT Sodium 140 mmol/L (135-144)
[2020-09-20] MEDS: ASPIRIN 81 MG ECTAB PO SCH (21:24)
[2020-09-20] MEDS: guaiFENesin 600 MG TABCR PO SCH (21:26)
[2020-09-20] MEDS: SIMVASTATIN 20 MG TAB PO SCH (21:27)
[2020-09-20] MEDS: oxyCODONE HCL IR 5 MG TAB (IMMEDIATE RELEASE) PO SCH (21:27)
[2020-09-21 06:23] LABS: Hematocrit (blood only) 41.4 % (37-47); Hemoglobin 13.8 g/dL (12.0-16.0); Mean Corpuscular Hemoglobin 30.5 pg (25-34); Mean Corpuscular Hgb Conc 33.3 g/dL (32-36); Mean Corpuscular Volume 91.4 fL (80-100); Mean Platelet Volume 9.3 fL (7.4-10.4); Platelet Count 454 K/uL (130-400); RDW Standard Deviation 43.8 fL (36.4-46.3); Red Blood Count 4.53 M/uL (4.2-5.4); White Blood Count 8.41 K/uL (4.8-10.8)
[2020-09-21 06:53] LABS: BUN Creatinine Ratio 28.6 (10-20); C Reactive Protein 4.5 mg/dl (0-0.29); Calcium 8.1 mg/dl (8.5-10.1); Creatinine Clr Calc Pharmacy 88.1 ml/min; Est GFR (African American) 98.1 ml/min; Est GFR (Non-African American) 84.7 ml/min; Potassium 4.9 mmol/L (3.5-5.1)
--- NOTE | 2020-09-21 08:02 | XRay Report ---
XR chest 1V portable CLINICAL HISTORY: Hypoxia. Shortness of breath COMPARISON STUDY: 09/18/2020 FINDINGS: The cardiac and mediastinal contours remain stable. There is mild progression in the bilate ral pulmonary airspace opacities consistent with a multifocal pneumonia. The heart is borderline enla rged. There are no significant pleural effusions.[ IMPRESSION: Slight progression in the bilateral multifocal airspace opacities consistent with a multi focal pneumonia ACT 112: Negative or not required by law. Electronically signed by: Yves Salvador M.D. 09/21/2020 8:01 AM
--- NOTE | 2020-09-21 08:07 | Hospitalist Progress Note ---
Date of Service September 21, 2020 Assessment & Plan (1) Pneumonia due to COVID-19 virus: With resulting acute hypoxic respiratory failure. Severe disease. Admitted on day 9 of her illness. Thus, convalescent plasma and remdesivir deferred. Continue dexamethasone 6mg IV daily, day 3 today. CRP down to 9 from 13, repeat tomorrow s/p tocilizumab on 09/20/20 after approval by pulmonary. day #4 of zithromax in the event there is any bacterial component. repeat labs in am. cont aggressive pulmonary toilet, proning, etc. Wean HFNC if sats are >90%. (2) Acute respiratory failure with hypoxia: 2nd COVID-19 pneumonia. No signs of complicating decompensated CHF. Repeat labs in am. See above in "pneumonia." (3) Hypertension: Continue metoprolol succinate 50 mg p.o. daily and Lisinopril 5mg daily (4) Anxiety: Continue BuSpar 15 mg p.o. twice daily (5) Hyperlipidemia: Continue simvastatin 20 mg p.o. every afternoon if ast/alt remain stable/acceptable recheck ast/alt in am (6) Hypokalemia: repleted now normal (7) DVT prophylaxis: Lovenox 40mg SQ BID due to high risk of VTE with COVID cont daily asa 81mg Admission and Anticipated Discharge Date Admission Date: September 18, 2020 Subjective tele overnight wnl patient c/o cough and dyspnea with minimal exertion but feels a bit better than yesterday eating is better had had diarrhea now resolved no chest pain or orthopnea she is being diligent about proning and incetive/flutter Review of Systems Constitutional: + fatigue; no fever and no chills Ear, Nose, Mouth, Throat: + nasal congestion Respiratory: + cough and + sputum production (mild); no hemoptysis Cardiovascular: no chest pain and no orthopnea Gastrointestinal: no abdominal pain Physical Exam Constitutional: + acute distress (mild dyspnea with moving in bed); no altered mental status ENMT: external ear and nose normal, oropharynx normal Respiratory: Auscultation: + diminished lung sounds (bases) and + crackles (very soft - bases ); no wheezes Cardiovascular: Rate/Rhythm: regular rate and regular rhythm Heart Sounds: normal S1 and normal S2; no murmur Vessels: posterior tibial pulses present and dorsalis pedis pulses present; no JVD Extremities: no edema Gastrointestinal (Abdomen): normal bowel sounds, soft, nontender, no hepatosplenomegaly Skin: no rashes, warm and dry Psychiatric: A+Ox3, euthymic affect Results & Data Results & Data ([facility]) Vital Signs (Past 12 Hours) Vital Signs Temp Pulse Resp BP Pulse Ox Pulse Ox 09/21/20 07:56 36.4 C L 72 24 129/76 91 09/21/20 07:33 67 20 95 09/21/20 03:45 87 18 98 09/21/20 03:30 36.8 C 64 17 139/100 100 09/20/20 23:25 6 L 20 95 09/20/20 23:24 36.7 C 68 18 140/93 93 09/20/20 23:00 94 Laboratory Results Laboratory Results - last 24 hr 09/20/20 09/21/20 09/21/20 19:29 05:32 05:32 WBC 8.41 RBC 4.53 Hgb 13.8 POC Hgb 12.9 Hct 41.4 POC Hct 38 MCV 91.4 MCH 30.5 MCHC 33.3 RDW Std Deviation 43.8 RDW Coeff of Kamila 13.0 Plt Count 454 H MPV 9.3 Sample Site L Radial POC pH 7.43 POC pCO2 35 POC pO2 80 POC HCO3 23 POC Total CO2 24 POC Base Excess -1.0 ABG pH (Temp Correct) 7.440 ABG pCO2 (Temp Corrct 34 L POC ABG pO2 at Pt Temp 78 POC ABG O2 Sat 96.0 H Florin Test Pass O2 Delivery Device Hi Michael Can POC FiO2 75 POC Sodium 140 Sodium 143 POC Potassium 4.0 Potassium 4.9 D Chloride 113 H Carbon Dioxide 28 Anion Gap 2.0 L BUN 22 H Creatinine 0.76 Est Cr Clr Drug Dosing 88.1 Est GFR ( Amer) 98.1 Est GFR (Non-Af Amer) 84.7 BUN/Creatinine Ratio 28.6 H Glucose 113 H Calcium 8.1 L C-Reactive Protein 4.50 H PG Care Time/CCT Total # of Minutes Spent Total Time Spent with Patient: Total time spent is greater than 50% in coordination of care (as documented) at patient's floor/unit and/or counseling patient: Coding Level of Care Code 21643 Subseq Hosp Care Lvl 2 Diagnoses Pneumonia due to COVID-19 virus U07.1; J12.82 Acute respiratory failure with hypoxia J96.01 Hypertension I10 Anxiety F41.9 Hyperlipidemia E78.5 Hyperlipidemia type: unspecified Hypokalemia E87.6 DVT prophylaxis Z29.9 (1) Hyperlipidemia Hyperlipidemia type: unspecified Qualified Code(s): E78.5 - Hyperlipidemia, unspecified
[2020-09-21] MEDS: lisinopril 5 MG TAB PO SCH (08:26)
[2020-09-21] MEDS: BENZONATATE 100 MG CAPSULE PO SCH ×3 (08:26→20:53)
[2020-09-21] MEDS: AZITHROMYCIN 250 MG TAB PO SCH (08:27)
[2020-09-21] MEDS: guaiFENesin 600 MG TABCR PO SCH ×2 (08:27→20:49)
[2020-09-21] MEDS: dexAMETHasone 6 MG in SYRINGE 0 ML IV SCH (08:27)
[2020-09-21] MEDS: busPIRone 15 MG TAB PO SCH ×2 (08:27→20:54)
[2020-09-21] MEDS: METOPROLOL SUCC 50MG EXT REL TAB PO SCH (08:27)
[2020-09-21] MEDS: OMEGA-3 (PURIFIED FISH OIL) 1 GM CAP PO SCH (08:28)
[2020-09-21] MEDS: ENOXAPARIN INJ 40 MG/0.4 ML SYR SQ SCH ×2 (08:28→20:57)
[2020-09-21] MEDS: ASPIRIN 81 MG ECTAB PO SCH (20:52)
[2020-09-21] MEDS: SIMVASTATIN 20 MG TAB PO SCH (20:57)
[2020-09-21] MEDS: oxyCODONE HCL IR 5 MG TAB (IMMEDIATE RELEASE) PO SCH (21:35)
[2020-09-22 06:52] LABS: BUN Creatinine Ratio 27.4 (10-20); Calcium 8.1 mg/dl (8.5-10.1); Creatinine Clr Calc Pharmacy 95.7 ml/min; Est GFR (African American) 108.4 ml/min; Est GFR (Non-African American) 93.5 ml/min; Potassium 4.5 mmol/L (3.5-5.1)
[2020-09-22] MEDS: dexAMETHasone 6 MG in SYRINGE 0 ML IV SCH (07:21)
[2020-09-22] MEDS: ENOXAPARIN INJ 40 MG/0.4 ML SYR SQ SCH ×2 (07:21→20:39)
[2020-09-22] MEDS: OMEGA-3 (PURIFIED FISH OIL) 1 GM CAP PO SCH (07:22)
[2020-09-22] MEDS: BENZONATATE 100 MG CAPSULE PO SCH ×3 (07:22→20:38)
[2020-09-22] MEDS: guaiFENesin 600 MG TABCR PO SCH ×2 (07:23→20:40)
[2020-09-22] MEDS: lisinopril 5 MG TAB PO SCH (07:24)
[2020-09-22] MEDS: AZITHROMYCIN 250 MG TAB PO SCH (07:24)
[2020-09-22] MEDS: METOPROLOL SUCC 50MG EXT REL TAB PO SCH (07:24)
[2020-09-22] MEDS: busPIRone 15 MG TAB PO SCH ×2 (07:25→20:38)
[2020-09-22] MEDS: FEXOFENADINE 60 MG TAB PO SCH ×2 (09:27→20:40)
[2020-09-22] MEDS: TRIAMCINOLONE ACET NASAL SPRAY 10.8ML BTL NAE SCH (09:27)
[2020-09-22] MEDS: ASPIRIN 81 MG ECTAB PO SCH (20:37)
[2020-09-22] MEDS: oxyCODONE HCL IR 5 MG TAB (IMMEDIATE RELEASE) PO SCH (22:16)
--- NOTE | 2020-09-22 22:49 | Hospitalist Progress Note ---
Date of Service September 22, 2020 Assessment & Plan (1) Pneumonia due to COVID-19 virus: With resulting acute hypoxic respiratory failure. Severe disease. Admitted on day 9 of her illness. Thus, convalescent plasma and remdesivir deferred. Continue dexamethasone 6mg IV daily, day 4 today. s/p tocilizumab on 09/20/20 after approval by pulmonary. day #5 of zithromax today - stop abx after today's dose. cont aggressive pulmonary toilet, proning, etc. Wean HFNC if sats are >90%. (2) Acute respiratory failure with hypoxia: 2nd severe COVID-19 pneumonia. No signs of complicating decompensated CHF. CTA chest 09/18/20 with NO pulmonary emboli. Repeat labs in am. See above in "pneumonia." (3) Hypertension: Continue metoprolol succinate 50 mg p.o. daily and Lisinopril 5mg daily Controlled (4) Anxiety: Continue BuSpar 15 mg p.o. twice daily (5) Hyperlipidemia: Due to ongoing elevation in AST will place statin on hold for now repeat AST/ALT in 2-3 days for stability (6) Hypokalemia: repleted and normal (7) History of gastric ulcer: in light of stress of illness & IV steroids - add PO PPI once daily starting AM (8) Transaminitis: 2nd COVID-19 infection trend hold statin (9) DVT prophylaxis: Lovenox 40mg SQ BID due to high risk of VTE with COVID cont daily asa 81mg PT, OT consults to be requested progressing albeit slowly left message for pt's son yesterday Admission and Anticipated Discharge Date Admission Date: September 18, 2020 Subjective no significant changes overnight she was sitting upright in bed during the visit remains on wall-mounted HFNC - fluctuating liters (8-12 liters throughout the day today) continues with cough - dry, but occasional blood-stream (has had such since admission - no increase in volume of it) spirits remain good - she is trying to stay positive mild central chest tightness w/ coughing; no true pleuritic pain no abd pain eating well at this point mild loose stool Review of Systems Constitutional: + fatigue; no fever, no chills, no body aches and no anorexia Ear, Nose, Mouth, Throat: + nasal congestion (improved with saline and other agents ) Respiratory: as per Subjective / HPI and + hemoptysis; no wheezing Cardiovascular: no chest pain, no orthopnea and no edema Gastrointestinal: no abdominal pain, no nausea and no vomiting Physical Exam Constitutional: no acute distress and no altered mental status looks good today ENMT: external ear and nose normal, oropharynx normal Nose: + septum abnormality and + dry nasal mucous membranes (deviated to RIGHT ); no nasal discharge Respiratory: Auscultation: + diminished lung sounds (bases) and + crackles (b/l bases ); no wheezes Cardiovascular: Rate/Rhythm: regular rate and regular rhythm Heart Sounds: normal S1 and normal S2; no murmur Vessels: posterior tibial pulses present and dorsalis pedis pulses present; no JVD Extremities: no edema Gastrointestinal (Abdomen): normal bowel sounds, soft, nontender, no hepatosplenomegaly Skin: no rashes, warm and dry Psychiatric: A+Ox3, euthymic affect Results & Data Results & Data ([facility]) Vital Signs (Past 12 Hours) Vital Signs Temp Pulse Resp BP BP Pulse Ox Pulse Ox 09/22/20 19:29 36.7 C 77 22 145/85 H 88 L 09/22/20 16:00 90 09/22/20 15:00 36.7 C 76 22 135/74 90 09/22/20 12:00 36.3 C L 73 20 121/72 94 Laboratory Results Laboratory Results - last 24 hr 09/22/20 05:24 Sodium 141 Potassium 4.5 Chloride 110 H Carbon Dioxide 28 Anion Gap 3.0 BUN 19 H Creatinine 0.70 Est Cr Clr Drug Dosing 95.7 Est GFR ( Amer) 108.4 Est GFR (Non-Af Amer) 93.5 BUN/Creatinine Ratio 27.4 H Glucose 96 Calcium 8.1 L AST 67 H ALT 59 Total Creatine Kinase 357 H PG Care Time/CCT Total # of Minutes Spent Total Time Spent with Patient: Total time spent is greater than 50% in coordination of care (as documented) at patient's floor/unit and/or counseling patient: Coding Level of Care Code 57340 Subseq Hosp Care Lvl 2 Diagnoses Pneumonia due to COVID-19 virus U07.1; J12.82 Acute respiratory failure with hypoxia J96.01 Hypertension I10 Anxiety F41.9 Hyperlipidemia E78.5 Hyperlipidemia type: unspecified Hypokalemia E87.6 History of gastric ulcer Z87.19 Transaminitis R74.01 DVT prophylaxis Z29.9 (1) Hyperlipidemia Hyperlipidemia type: unspecified Qualified Code(s): E78.5 - Hyperlipidemia, unspecified
[2020-09-23 07:14] LABS: Calcium 8.3 mg/dl (8.5-10.1); Est GFR (African American) 88.2 ml/min; Est GFR (Non-African American) 76.1 ml/min; Potassium 4.1 mmol/L (3.5-5.1)
[2020-09-23] MEDS: dexAMETHasone 6 MG in SYRINGE 0 ML IV SCH (07:54)
[2020-09-23] MEDS: guaiFENesin 600 MG TABCR PO SCH ×2 (07:54→20:59)
[2020-09-23] MEDS: lisinopril 5 MG TAB PO SCH (07:55)
[2020-09-23] MEDS: OMEGA-3 (PURIFIED FISH OIL) 1 GM CAP PO SCH (07:55)
[2020-09-23] MEDS: METOPROLOL SUCC 50MG EXT REL TAB PO SCH (07:55)
[2020-09-23] MEDS: busPIRone 15 MG TAB PO SCH ×2 (07:55→20:59)
[2020-09-23] MEDS: ENOXAPARIN INJ 40 MG/0.4 ML SYR SQ SCH ×2 (07:55→20:58)
[2020-09-23] MEDS: FEXOFENADINE 60 MG TAB PO SCH ×2 (07:56→20:59)
[2020-09-23] MEDS: BENZONATATE 100 MG CAPSULE PO SCH ×3 (07:56→20:59)
[2020-09-23] MEDS: TRIAMCINOLONE ACET NASAL SPRAY 10.8ML BTL NAE SCH (07:58)
[2020-09-23] MEDS: PANTOprazole 40 MG TAB PO SCH (08:43)
--- NOTE | 2020-09-23 15:16 | XRay Report ---
XR chest 1V portable CLINICAL HISTORY: covid 19 COMPARISON STUDY: Chest CT September 18, 2020. Chest radiograph September 21, 2020. FINDINGS: Lung volumes are normal. There is no pneumothorax or pleural effusion. Cardiomediastinal si lhouette is stable. Moderate bilateral airspace opacities have slightly improved. IMPRESSION: Slight improvement in moderate bilateral airspace opacities consistent with multifocal p neumonia. ACT 112: Negative or not required by law. Electronically signed by: Zi Bryan M.D. 09/23/2020 3:15 PM
--- NOTE | 2020-09-23 19:59 | Hospitalist Progress Note ---
Date of Service September 23, 2020 Assessment & Plan (1) Pneumonia due to COVID-19 virus: With resulting acute hypoxic respiratory failure. Severe disease but making steady improvement. CXR today modestly improved. Continue dexamethasone 6mg IV daily, day 5 today. 10-day course planned. s/p tocilizumab on 09/20/20 after approval by pulmonary. s/p 5-day course of zithromax. cont aggressive pulmonary toilet, proning, etc. cont to wean HFNC if sats are >90%. (2) Acute respiratory failure with hypoxia: 2nd severe COVID-19 pneumonia. No signs of complicating decompensated CHF. CTA chest 09/18/20 with NO pulmonary emboli. cxr today improved. Repeat labs in am. See above in "pneumonia." (3) Hypertension: Continue metoprolol succinate 50 mg p.o. daily and Lisinopril 5mg daily Controlled (4) Anxiety: Continue BuSpar 15 mg p.o. twice daily (5) Hyperlipidemia: Due to ongoing elevation in AST statin on hold for now repeat AST/ALT in 2-3 days for stability (6) Hypokalemia: repleted and normal (7) History of gastric ulcer: in light of stress of illness & IV steroids cont PPI once daily (8) Transaminitis: 2nd COVID-19 infection trend hold statin (9) Nasal congestion: add afrin 1 spray each nostril bid x 3 days saline spray nasacort kj can use oxymask in [place] O2 to give nose a break as needed (10) DVT prophylaxis: Lovenox 40mg SQ BID due to high risk of VTE with COVID cont daily asa 81mg PT, OT consults to be requested progressing updated pt's son extensively by phone today Admission and Anticipated Discharge Date Admission Date: September 18, 2020 Subjective no events overnight patient feels similarly to yesterday staff report fluctuating O2 requirements on wall-mounted HFNC patient continues with cough and occasionally small-volume hemoptysis - latter improved from admission main complaint today is that of ongoing nasal congestion she is particularly blocked/congested on right denies frontal sinus, ethmoid sinus, or maxillary sinus pain eating well stools are soft Review of Systems Constitutional: + fatigue; no fever and no chills Respiratory: + cough, + dyspnea on exertion and + hemoptysis; no wheezing Cardiovascular: + chest pain (Mild central chest tightness during coughing spells ) Gastrointestinal: no abdominal pain, no nausea and no vomiting Physical Exam Constitutional: no acute distress and no altered mental status ENMT: external ear and nose normal, oropharynx normal Nose: + septum abnormality; no nasal discharge Respiratory: Auscultation: + diminished lung sounds (bases) and + crackles (b/l bases ); no wheezes Cardiovascular: Rate/Rhythm: regular rate and regular rhythm Heart Sounds: normal S1 and normal S2; no murmur Vessels: posterior tibial pulses present and dorsalis pedis pulses present; no JVD Extremities: no edema Gastrointestinal (Abdomen): normal bowel sounds, soft, nontender, no hepatosplenomegaly Skin: no rashes, warm and dry Psychiatric: A+Ox3, euthymic affect Results & Data Results & Data ([facility]) Vital Signs (Past 12 Hours) Vital Signs Temp Pulse Resp BP Pulse Ox Pulse Ox 09/23/20 16:00 96 09/23/20 11:50 93 09/23/20 11:30 98 09/23/20 11:07 36.4 C L 80 16 129/81 93 Laboratory Results Laboratory Results - last 24 hr 09/23/20 05:50 Sodium 141 Potassium 4.1 Chloride 109 H Carbon Dioxide 27 Anion Gap 5.0 BUN 21 H Creatinine 0.83 Est Cr Clr Drug Dosing 79.0 Est GFR ( Amer) 88.2 Est GFR (Non-Af Amer) 76.1 BUN/Creatinine Ratio 25.0 H Glucose 85 Calcium 8.3 L PG Care Time/CCT Total # of Minutes Spent Total Time Spent with Patient: Total time spent is greater than 50% in coordination of care (as documented) at patient's floor/unit and/or counseling patient: Coding Level of Care Code 41845 Subseq Hosp Care Lvl 2 Diagnoses Pneumonia due to COVID-19 virus U07.1; J12.82 Acute respiratory failure with hypoxia J96.01 Hypertension I10 Anxiety F41.9 Hyperlipidemia E78.5 Hyperlipidemia type: unspecified Hypokalemia E87.6 History of gastric ulcer Z87.19 Transaminitis R74.01 Nasal congestion R09.81 DVT prophylaxis Z29.9 (1) Hyperlipidemia Hyperlipidemia type: unspecified Qualified Code(s): E78.5 - Hyperlipidemia, unspecified
[2020-09-23] MEDS: ASPIRIN 81 MG ECTAB PO SCH (20:59)
[2020-09-23] MEDS: oxyCODONE HCL IR 5 MG TAB (IMMEDIATE RELEASE) PO SCH (21:41)
[2020-09-24] MEDS: lisinopril 5 MG TAB PO SCH (08:12)
[2020-09-24] MEDS: BENZONATATE 100 MG CAPSULE PO SCH ×3 (08:12→21:30)
[2020-09-24] MEDS: OXYMETAZOLINE 0.05% 30 ML BTL NAE PRN (08:14)
[2020-09-24] MEDS: PANTOprazole 40 MG TAB PO SCH (08:15)
[2020-09-24] MEDS: guaiFENesin 600 MG TABCR PO SCH ×2 (08:15→21:28)
[2020-09-24] MEDS: dexAMETHasone 6 MG in SYRINGE 0 ML IV SCH (08:15)
[2020-09-24] MEDS: OMEGA-3 (PURIFIED FISH OIL) 1 GM CAP PO SCH (08:15)
[2020-09-24] MEDS: busPIRone 15 MG TAB PO SCH ×2 (08:15→21:28)
[2020-09-24] MEDS: METOPROLOL SUCC 50MG EXT REL TAB PO SCH (08:15)
[2020-09-24] MEDS: ENOXAPARIN INJ 40 MG/0.4 ML SYR SQ SCH ×2 (08:16→21:30)
[2020-09-24] MEDS: TRIAMCINOLONE ACET NASAL SPRAY 10.8ML BTL NAE SCH (08:17)
[2020-09-24] MEDS: FEXOFENADINE 60 MG TAB PO SCH ×2 (10:18→21:29)
[2020-09-24] MEDS: SODIUM CHLORIDE 0.65% NA SOLN 45 ML (OCEAN) PRN (10:19)
--- NOTE | 2020-09-24 21:21 | Hospitalist Progress Note ---
Date of Service September 24, 2020 Assessment & Plan (1) Pneumonia due to COVID-19 virus: With resulting acute hypoxic respiratory failure. Severe disease but making steady improvement. Most recent CXR modestly improved. NO evidence of complicating PE or CHF. Continue dexamethasone 6mg IV daily, day 6 today. 10-day course planned. s/p tocilizumab on 09/20/20 after approval by pulmonary. s/p 5-day course of zithromax. cont aggressive pulmonary toilet, proning, etc. cont to wean HFNC if sats are >90%. (2) Acute respiratory failure with hypoxia: 2nd severe COVID-19 pneumonia. See above in "pneumonia." (3) Hypertension: Continue metoprolol succinate 50 mg p.o. daily and Lisinopril 5mg daily Controlled (4) Anxiety: Continue BuSpar 15 mg p.o. twice daily (5) Hyperlipidemia: Due to ongoing elevation in AST statin on hold for now repeat AST in am (6) Hypokalemia: repleted and normal (7) History of gastric ulcer: cont PPI once daily (8) Transaminitis: 2nd COVID-19 infection recheck AST am hold statin (9) Nasal congestion: cont afrin 1 spray each nostril bid x 3 days saline spray nasacort kj can use oxymask in [place] O2 to give nose a break as needed - she states this has helped (10) DVT prophylaxis: Lovenox 40mg SQ BID due to high risk of VTE with COVID cont daily asa 81mg PT, OT consults appreciated progressing slowly updated pt's son extensively by phone yesterday Admission and Anticipated Discharge Date Admission Date: September 18, 2020 Subjective no events overnight she worked with PT today - did ok with such no change in cough or dyspnea no chest pain, abd pain, diarrhea eating very well continuing to prone and do deep breathing no new complaints nasal congestion improved w/ afrin Review of Systems Constitutional: + fatigue; no fever, no chills, no body aches and no anorexia Ear, Nose, Mouth, Throat: no loss of taste or smell Respiratory: as per Subjective / HPI Cardiovascular: no chest pain and no edema Gastrointestinal: no abdominal pain, no nausea and no vomiting Physical Exam Constitutional: no acute distress and no altered mental status ENMT: external ear and nose normal, oropharynx normal Respiratory: Auscultation: + diminished lung sounds (bases) and + crackles (b/l bases - minimal ); no wheezes Cardiovascular: Rate/Rhythm: regular rate and regular rhythm Heart Sounds: normal S1 and normal S2; no murmur Vessels: posterior tibial pulses present and dorsalis pedis pulses present; no JVD Extremities: no edema Gastrointestinal (Abdomen): normal bowel sounds, soft, nontender, no hepatosplenomegaly Skin: no rashes, warm and dry Psychiatric: A+Ox3, euthymic affect Results & Data Results & Data ([facility]) Vital Signs (Past 12 Hours) Vital Signs Temp Pulse Resp BP BP Pulse Ox Pulse Ox 09/24/20 16:09 92 09/24/20 16:00 93 09/24/20 15:16 36.7 C 92 H 20 128/71 92 09/24/20 11:29 36.5 C 80 22 114/54 L 93 PG Care Time/CCT Total # of Minutes Spent Total Time Spent with Patient: Total time spent is greater than 50% in coordination of care (as documented) at patient's floor/unit and/or counseling patient: Coding Level of Care Code 53967 Subseq Hosp Care Lvl 2 Diagnoses Pneumonia due to COVID-19 virus U07.1; J12.82 Acute respiratory failure with hypoxia J96.01 Hypertension I10 Anxiety F41.9 Hyperlipidemia E78.5 Hyperlipidemia type: unspecified Hypokalemia E87.6 History of gastric ulcer Z87.19 Transaminitis R74.01 Nasal congestion R09.81 DVT prophylaxis Z29.9 (1) Hyperlipidemia Hyperlipidemia type: unspecified Qualified Code(s): E78.5 - Hyperlipidemia, unspecified
[2020-09-24] MEDS: ASPIRIN 81 MG ECTAB PO SCH (21:29)
[2020-09-24] MEDS: oxyCODONE HCL IR 5 MG TAB (IMMEDIATE RELEASE) PO SCH (21:30)
[2020-09-25 07:11] LABS: BUN Creatinine Ratio 23.2 (10-20); Calcium 8.4 mg/dl (8.5-10.1); Creatinine Clr Calc Pharmacy 76.3 ml/min; Est GFR (African American) 84.5 ml/min; Est GFR (Non-African American) 72.9 ml/min; Potassium 4.3 mmol/L (3.5-5.1)
[2020-09-25] MEDS: ENOXAPARIN INJ 40 MG/0.4 ML SYR SQ SCH ×2 (07:26→20:53)
[2020-09-25] MEDS: BENZONATATE 100 MG CAPSULE PO SCH ×3 (07:26→21:03)
[2020-09-25] MEDS: FEXOFENADINE 60 MG TAB PO SCH ×2 (07:27→20:52)
[2020-09-25] MEDS: guaiFENesin 600 MG TABCR PO SCH ×2 (07:27→20:52)
[2020-09-25] MEDS: PANTOprazole 40 MG TAB PO SCH ×2 (07:27→07:29)
[2020-09-25] MEDS: TRIAMCINOLONE ACET NASAL SPRAY 10.8ML BTL NAE SCH (07:27)
[2020-09-25] MEDS: lisinopril 5 MG TAB PO SCH (07:28)
[2020-09-25] MEDS: busPIRone 15 MG TAB PO SCH ×2 (07:28→20:52)
[2020-09-25] MEDS: METOPROLOL SUCC 50MG EXT REL TAB PO SCH (07:28)
[2020-09-25] MEDS: OMEGA-3 (PURIFIED FISH OIL) 1 GM CAP PO SCH (07:29)
[2020-09-25] MEDS: ASPIRIN 81 MG ECTAB PO SCH (07:29)
[2020-09-25] MEDS: dexAMETHasone 6 MG in SYRINGE 0 ML IV SCH (08:16)
[2020-09-25] MEDS: oxyCODONE HCL IR 5 MG TAB (IMMEDIATE RELEASE) PO SCH (20:53)
[2020-09-26] MEDS: BENZONATATE 100 MG CAPSULE PO SCH ×3 (07:26→21:31)
[2020-09-26] MEDS ORDERED: MAGNESIUM OXIDE 400 MG TAB PO ONE (07:54)
[2020-09-26] MEDS ORDERED: FUROSEMIDE 20 MG TAB PO ONE (07:54)
[2020-09-26] MEDS ORDERED: POTASSIUM CHLORIDE CRTAB 20 MEQ TABCR PO STA (07:54)
--- NOTE | 2020-09-26 08:00 | Hospitalist Progress Note ---
Date of Service September 25, 2020 Assessment & Plan (1) Pneumonia due to COVID-19 virus: With resulting acute hypoxic respiratory failure. Severe disease earlier during the stay but making slow, steady improvement. Most recent CXR modestly improved. NO evidence of complicating PE or CHF. Continue dexamethasone 6mg IV daily, day 7 today. 10-day course planned. s/p tocilizumab on 09/20/20 after approval by pulmonary. s/p 5-day course of zithromax. cont aggressive pulmonary toilet, proning, etc. cont to wean HFNC if sats are >90%. consider a dose of diuretic. (2) Acute respiratory failure with hypoxia: 2nd severe COVID-19 pneumonia. See above in "pneumonia." Gradually improving. (3) Hypertension: Continue metoprolol succinate 50 mg p.o. daily and Lisinopril 5mg daily Controlled (4) Anxiety: Continue BuSpar 15 mg p.o. twice daily May need modest increase (5) Hyperlipidemia: Due to ongoing elevation in AST statin on hold for now repeat AST in 48 hours (6) Hypokalemia: repleted and normal (7) History of gastric ulcer: cont PPI once daily as prophylaxis in setting of steroids (8) Transaminitis: 2nd COVID-19 infection mild hold statin (9) Nasal congestion: improved cont afrin 1 spray each nostril bid x 3 days saline spray nasacort kj can use oxymask in [place] O2 to give nose a break as needed - she states this has helped (10) DVT prophylaxis: Lovenox 40mg SQ BID due to high risk of VTE with COVID cont daily asa 81mg PT, OT consults appreciated progressing slowly updated pt's son extensively by phone today he is relieved that his mother is gradually improving Admission and Anticipated Discharge Date Admission Date: September 18, 2020 Subjective patient was "irritable" this am but this has passed and she is now in better spirits her cough is improving her hemoptysis is largely resolved no dyspnea or orthopnea at rest minimal MARTINEZ HFNC - wall-mounted - 5-10 liters still proning diligent about flutter/incentive eating well no loss of taste/smell anxious to get home Review of Systems Constitutional: no fever, no chills and no body aches Ear, Nose, Mouth, Throat: + nasal congestion (but improved w/ afrin) Respiratory: + cough; no sputum production and no wheezing Cardiovascular: no chest pain Gastrointestinal: no abdominal pain, no nausea, no vomiting and no diarrhea/loose stools Physical Exam Constitutional: no acute distress and no altered mental status ENMT: external ear and nose normal, oropharynx normal Respiratory: Auscultation: + diminished lung sounds (bases); no crackles and no wheezes Cardiovascular: Rate/Rhythm: regular rate and regular rhythm Heart Sounds: normal S1 and normal S2; no murmur Vessels: posterior tibial pulses present and dorsalis pedis pulses present; no JVD Extremities: no edema Gastrointestinal (Abdomen): normal bowel sounds, soft, nontender, no hepatosplenomegaly Skin: no rashes, warm and dry Psychiatric: A+Ox3, euthymic affect Results & Data Results & Data ([facility]) Vital Signs (Past 12 Hours) Vital Signs Temp Pulse Resp BP Pulse Ox Pulse Ox 09/26/20 06:59 94 09/26/20 00:50 98 09/26/20 00:10 36.8 C 74 18 112/50 L 93 Laboratory Results BMP / Creatinine wnl PG Care Time/CCT Total # of Minutes Spent Total Time Spent with Patient: Total time spent is greater than 50% in coordination of care (as documented) at patient's floor/unit and/or counseling patient: Coding Level of Care Code 01838 Subseq Hosp Care Lvl 2 Diagnoses Pneumonia due to COVID-19 virus U07.1; J12.82 Acute respiratory failure with hypoxia J96.01 Hypertension I10 Anxiety F41.9 Hyperlipidemia E78.5 Hyperlipidemia type: unspecified Hypokalemia E87.6 History of gastric ulcer Z87.19 Transaminitis R74.01 Nasal congestion R09.81 DVT prophylaxis Z29.9 (1) Hyperlipidemia Hyperlipidemia type: unspecified Qualified Code(s): E78.5 - Hyperlipidemia, unspecified
[2020-09-26] MEDS: busPIRone 15 MG TAB PO SCH ×2 (08:29→21:22)
[2020-09-26] MEDS: ENOXAPARIN INJ 40 MG/0.4 ML SYR SQ SCH ×2 (08:29→21:22)
[2020-09-26] MEDS: lisinopril 5 MG TAB PO SCH (08:29)
[2020-09-26] MEDS: OMEGA-3 (PURIFIED FISH OIL) 1 GM CAP PO SCH (08:29)
[2020-09-26] MEDS: FEXOFENADINE 60 MG TAB PO SCH ×2 (08:29→21:24)
[2020-09-26] MEDS: METOPROLOL SUCC 50MG EXT REL TAB PO SCH (08:29)
[2020-09-26] MEDS: guaiFENesin 600 MG TABCR PO SCH ×2 (08:30→21:24)
[2020-09-26] MEDS: dexAMETHasone 6 MG in SYRINGE 0 ML IV SCH (08:30)
[2020-09-26] MEDS: PANTOprazole 40 MG TAB PO SCH (08:30)
[2020-09-26] MEDS: OXYMETAZOLINE 0.05% 30 ML BTL NAE PRN (08:31)
[2020-09-26] MEDS: SODIUM CHLORIDE 0.65% NA SOLN 45 ML (OCEAN) PRN (08:32)
[2020-09-26] MEDS: TRIAMCINOLONE ACET NASAL SPRAY 10.8ML BTL NAE SCH (08:32)
--- NOTE | 2020-09-26 21:03 | Hospitalist Progress Note ---
Date of Service September 26, 2020 Assessment & Plan (1) Pneumonia due to COVID-19 virus: With resulting acute hypoxic respiratory failure. Severe disease at start of this hospital stay but making great improvement last 2-3 days. Most recent CXR modestly improved. NO evidence of complicating PE or CHF. Gave small dose of lasix orally without any significant changes clinically. Continue dexamethasone 6mg IV daily, day 8 today. 10-day course planned. s/p tocilizumab on 09/20/20 after approval by pulmonary. s/p 5-day course of zithromax. cont aggressive pulmonary toilet, proning, etc. cont to wean O2 if sats are >90%. (2) Acute respiratory failure with hypoxia: 2nd severe COVID-19 pneumonia. See above in "pneumonia." Improving nicely. (3) Hypertension: Continue metoprolol succinate 50 mg p.o. daily and Lisinopril 5mg daily -- controlled (4) Anxiety: Continue BuSpar 15 mg p.o. twice daily May need modest increase (5) Hyperlipidemia: Due to ongoing elevation in AST statin has been on hold repeat AST in am; if normal can resume zocor (6) Hypokalemia: repleted and normal (7) History of gastric ulcer: cont PPI once daily as prophylaxis in setting of steroids (8) Transaminitis: 2nd COVID-19 infection mild hold statin recheck ast in am (9) Nasal congestion: improved cont afrin 1 spray each nostril bid x 3 days saline spray nasacort kj can use oxymask in [place] O2 to give nose a break as needed (10) DVT prophylaxis: Lovenox 40mg SQ BID due to high risk of VTE with COVID cont daily asa 81mg PT, OT consults appreciated will be able to return home at discharge updated pt's son extensively by phone yesterday Admission and Anticipated Discharge Date Admission Date: September 18, 2020 Subjective feeling good eating well ambulating normal bowel movements had a "large plug" in her nose overnight that she got out and her breathing was much easier since then mild MARTINEZ but none at rest mild dry cough only Review of Systems Constitutional: no fever, no chills, no body aches, no fatigue and no anorexia Ear, Nose, Mouth, Throat: no loss of taste or smell Respiratory: + cough and + dyspnea on exertion Cardiovascular: no chest pain Gastrointestinal: no abdominal pain, no nausea, no vomiting and no diarrhea/loose stools Physical Exam Constitutional: no acute distress and no altered mental status ENMT: external ear and nose normal, oropharynx normal Respiratory: Auscultation: + diminished lung sounds (bases); no crackles and n o wheezes Cardiovascular: Rate/Rhythm: regular rate and regular rhythm Heart Sounds: normal S1 and normal S2; no murmur Vessels: posterior tibial pulses present and dorsalis pedis pulses present; no JVD Extremities: no edema Gastrointestinal (Abdomen): normal bowel sounds, soft, nontender, no hepatosplenomegaly Skin: no rashes, warm and dry Psychiatric: A+Ox3, euthymic affect Results & Data Results & Data ([facility]) Vital Signs (Past 12 Hours) Vital Signs Temp Pulse Resp BP Pulse Ox Pulse Ox 09/26/20 09:00 96 09/26/20 08:00 36.5 C 88 20 118/72 09/26/20 06:59 94 09/26/20 00:50 98 09/26/20 00:10 36.8 C 74 18 112/50 L 93 Intake and Output 09/26/20 09/26/20 09/26/20 06:59 14:59 22:59 Intake Total 350 / 1450 350 / 350 Balance 350 / 1449 350 / 350 Intake: Oral 350 / 1450 350 / 350 Other: # Unmeasured Voids 1 2 PG Care Time/CCT Total # of Minutes Spent Total Time Spent with Patient: Total time spent is greater than 50% in coordination of care (as documented) at patient's floor/unit and/or counseling patient: Coding Level of Care Code 80508 Subseq Hosp Care Lvl 2 Diagnoses Pneumonia due to COVID-19 virus U07.1; J12.82 Acute respiratory failure with hypoxia J96.01 Hypertension I10 Anxiety F41.9 Hyperlipidemia E78.5 Hyperlipidemia type: unspecified Hypokalemia E87.6 History of gastric ulcer Z87.19 Transaminitis R74.01 Nasal congestion R09.81 DVT prophylaxis Z29.9 (1) Hyperlipidemia Hyperlipidemia type: unspecified Qualified Code(s): E78.5 - Hyperlipidemia, unspecified
[2020-09-26] MEDS: oxyCODONE HCL IR 5 MG TAB (IMMEDIATE RELEASE) PO SCH (21:21)
[2020-09-26] MEDS: ASPIRIN 81 MG ECTAB PO SCH (21:22)
[2020-09-27 06:36] LABS: Hematocrit (blood only) 43.1 % (37-47); Hemoglobin 14.8 g/dL (12.0-16.0); Mean Corpuscular Hemoglobin 30.6 pg (25-34); Mean Corpuscular Hgb Conc 34.3 g/dL (32-36); Mean Corpuscular Volume 89.2 fL (80-100); Mean Platelet Volume 9.3 fL (7.4-10.4); Platelet Count 603 K/uL (130-400); RDW Coefficient of Variation 12.9 % (11.5-14.5); RDW Standard Deviation 41.8 fL (36.4-46.3); Red Blood Count 4.83 M/uL (4.2-5.4); White Blood Count 9.23 K/uL (4.8-10.8)
[2020-09-27 07:05] LABS: BUN Creatinine Ratio 22.3 (10-20); Creatinine Clr Calc Pharmacy 72.9 ml/min; Magnesium 2.5 mg/dl (1.8-2.4); Potassium 4.6 mmol/L (3.5-5.1)
[2020-09-27] MEDS: dexAMETHasone 6 MG in SYRINGE 0 ML IV SCH (08:48)
[2020-09-27] MEDS: lisinopril 5 MG TAB PO SCH (08:49)
[2020-09-27] MEDS: BENZONATATE 100 MG CAPSULE PO SCH ×3 (08:49→20:27)
[2020-09-27] MEDS: FEXOFENADINE 60 MG TAB PO SCH ×2 (08:49→20:27)
[2020-09-27] MEDS: guaiFENesin 600 MG TABCR PO SCH ×2 (08:49→20:27)
[2020-09-27] MEDS: busPIRone 15 MG TAB PO SCH ×2 (08:50→20:27)
[2020-09-27] MEDS: OXYMETAZOLINE 0.05% 30 ML BTL NAE PRN (08:50)
[2020-09-27] MEDS: ENOXAPARIN INJ 40 MG/0.4 ML SYR SQ SCH ×2 (08:50→20:27)
[2020-09-27] MEDS: METOPROLOL SUCC 50MG EXT REL TAB PO SCH (08:50)
[2020-09-27] MEDS: OMEGA-3 (PURIFIED FISH OIL) 1 GM CAP PO SCH (08:50)
[2020-09-27] MEDS: TRIAMCINOLONE ACET NASAL SPRAY 10.8ML BTL NAE SCH (08:51)
[2020-09-27] MEDS ORDERED: TEMAZEPAM 7.5 MG CAPSULE PO PRN (19:36)
[2020-09-27] MEDS ORDERED: SODIUM CHLORIDE 0.65% NA SOLN 45 ML (OCEAN) PRN (19:38)
[2020-09-27] MEDS: DICLOFENAC SOD 1% GEL 100 GM TUBE EXT SCH (20:26)
[2020-09-27] MEDS: ASPIRIN 81 MG ECTAB PO SCH (20:27)
[2020-09-27] MEDS: SIMVASTATIN 20 MG TAB PO SCH (20:27)
[2020-09-27] MEDS: oxyCODONE HCL IR 5 MG TAB (IMMEDIATE RELEASE) PO SCH (20:28)
--- NOTE | 2020-09-27 20:31 | Hospitalist Progress Note ---
Date of Service September 27, 2020 Assessment & Plan (1) Pneumonia due to COVID-19 virus: With resulting severe acute hypoxic respiratory failure. MARKED IMPROVEMENT - FiO2 requirement down to 2.5 liters/min. Feeling much better. Labs acceptable; vitals stable. Most recent CXR modestly improved. NO evidence of complicating PE or CHF. Gave small dose of lasix orally without any significant changes clinically. Continue dexamethasone 6mg IV daily, day 9 today. 10-day course planned. s/p tocilizumab on 09/20/20 after approval by pulmonary. s/p 5-day course of zithromax. cont aggressive pulmonary toilet, proning, etc. cont to wean O2 via oxymask/[place]. spoke with infection control today - can remove isolation. symptom onset was 09/10/20 --- thus, day 18 of her illness course. (2) Acute respiratory failure with hypoxia: 2nd severe COVID-19 pneumonia. RESOLVING. See above in "pneumonia." Able to wean FiO2 over last several days. (3) Hypertension: Continue metoprolol succinate 50 mg p.o. daily and Lisinopril 5mg daily -- controlled (4) Anxiety: Continue BuSpar 15 mg p.o. twice daily Insomnia - temazepam 7.5mg HS prn (5) Hyperlipidemia: resume zocor as transaminases are now normal (6) Hypokalemia: repleted and normal (7) History of gastric ulcer: cont PPI once daily as prophylaxis in setting of steroids (8) Transaminitis: 2nd COVID-19 infection mild resolved can resume statin (9) Nasal congestion: improved cont afrin 1 spray each nostril bid x 3 days saline spray nasacort kj can use oxymask in [place] O2 to try and prevent dryness (10) Thrombocytosis: Likely reactive to COVID-19 virus itself. simply trend. she is already on asa 81mg daily. (11) DVT prophylaxis: Lovenox 40mg SQ BID due to high risk of VTE with COVID cont daily asa 81mg PT, OT consults appreciated will be able to return home at discharge updated pt's son extensively by phone tonight restoril 7.5mg po x 1 at her request for sleep home next 48 hours?? Admission and Anticipated Discharge Date Admission Date: September 18, 2020 Subjective no issues overnight continues to wean on [place] O2 during my rounds I decreased the FIO2 to 2.5 L via oxymask for the next 10-15 min O2 sats were 93-96% on such cough present - but improved minimal sputum rare pink-tinged sputum no radha hemoptysis asks for sleep aid for tonight staying active in the room Review of Systems Constitutional: no fever, no chills, no body aches, no fatigue, no weakness and no anorexia Ear, Nose, Mouth, Throat: + nasal congestion Respiratory: + cough; no sputum production and no wheezing Cardiovascular: no chest pain Gastrointestinal: no nausea, no vomiting and no diarrhea/loose stools Physical Exam Constitutional: no acute distress and no altered mental status looks great today ENMT: external ear and nose normal, oropharynx normal Respiratory: Auscultation: + diminished lung sounds (bases); no crackles and no wheezes Cardiovascular: Rate/Rhythm: regular rate and regular rhythm Heart Sounds: normal S1 and normal S2; no murmur Vessels: posterior tibial pulses present a nd dorsalis pedis pulses present; no JVD Extremities: no edema Gastrointestinal (Abdomen): normal bowel sounds, soft, nontender, no hepatosplenomegaly Psychiatric: A+Ox3, euthymic affect Results & Data Results & Data ([facility]) Vital Signs (Past 12 Hours) Vital Signs Pulse Ox Pulse Ox 09/27/20 15:23 86 L 09/27/20 15:22 86 L 09/27/20 09:00 97 Vital Signs Temp Pulse Resp BP Pulse Ox Pulse Ox 09/27/20 23:00 36.8 C 73 20 110/66 95 09/27/20 15:23 86 L 09/27/20 15:22 86 L 09/27/20 09:00 97 Intake and Output 09/27/20 09/27/20 09/28/20 14:59 22:59 06:59 Intake Total 565 / 565 Balance 565 / 565 Intake: Oral 565 / 565 Other: # Unmeasured Voids 3 1 Laboratory Results Laboratory Results - last 24 hr 09/27/20 09/27/20 06:06 06:06 WBC 9.23 RBC 4.83 Hgb 14.8 Hct 43.1 MCV 89.2 MCH 30.6 MCHC 34.3 RDW Std Deviation 41.8 RDW Coeff of Kamila 12.9 Plt Count 603 H MPV 9.3 Sodium 137 Potassium 4.6 Chloride 106 Carbon Dioxide 26 Anion Gap 5.0 BUN 20 H Creatinine 0.90 Est Cr Clr Drug Dosing 72.9 Est GFR ( Amer) 80.0 Est GFR (Non-Af Amer) 69.0 BUN/Creatinine Ratio 22.3 H Glucose 86 Calcium 9.0 Magnesium 2.5 H AST 33 PG Care Time/CCT Total # of Minutes Spent Total Time Spent with Patient: Total time spent is greater than 50% in coordination of care (as documented) at patient's floor/unit and/or counseling patient: Coding Level of Care Code 66605 Subseq Hosp Care Lvl 2 Diagnoses Pneumonia due to COVID-19 virus U07.1; J12.82 Acute respiratory failure with hypoxia J96.01 Hypertension I10 Anxiety F41.9 Hyperlipidemia E78.5 Hyperlipidemia type: unspecified Hypokalemia E87.6 History of gastric ulcer Z87.19 Transaminitis R74.01 Nasal congestion R09.81 Thrombocytosis D47.3 DVT prophylaxis Z29.9 (1) Hyperlipidemia Hyperlipidemia type: unspecified Qualified Code(s): E78.5 - Hyperlipidemia, unspecified
[2020-09-28] MEDS: guaiFENesin 600 MG TABCR PO SCH (08:48)
[2020-09-28] MEDS: busPIRone 15 MG TAB PO SCH (08:48)
[2020-09-28] MEDS: PANTOprazole 40 MG TAB PO SCH (08:48)
[2020-09-28] MEDS: FEXOFENADINE 60 MG TAB PO SCH (08:48)
[2020-09-28] MEDS: OMEGA-3 (PURIFIED FISH OIL) 1 GM CAP PO SCH (08:49)
[2020-09-28] MEDS: DICLOFENAC SOD 1% GEL 100 GM TUBE EXT SCH ×2 (08:49→13:52)
[2020-09-28] MEDS: lisinopril 5 MG TAB PO SCH (08:49)
[2020-09-28] MEDS: METOPROLOL SUCC 50MG EXT REL TAB PO SCH (08:49)
[2020-09-28] MEDS: ENOXAPARIN INJ 40 MG/0.4 ML SYR SQ SCH (08:50)
[2020-09-28] MEDS: TRIAMCINOLONE ACET NASAL SPRAY 10.8ML BTL NAE SCH (08:51)
[2020-09-28] MEDS: BENZONATATE 100 MG CAPSULE PO SCH ×2 (08:52→13:52)
--- NOTE | 2020-09-28 13:09 | Discharge Summary ---
Date of Service date of admission - September 18, 2020 date of discharge - September 28, 2020 Admission HPI Per Admitting Provider Paris Santos is a 60 year old female who presents to the ER with ongoing symptoms of COVID-19 pneumonia. Symptom onset 09/10/20. Tested positive 09/11/20. She reports ongoing fever, chills, shortness of breath, nonproductive cough, loss of taste and smell, generalized fatigue, diarrhea, nausea. No significant nasal congestion, sore throat, headache, chest or abdominal pain. She is not vaccinated. Reports likely transmission from her son who she lives with. She reports she was feeling slightly better up until 5 days ago when she has been progressively getting worse. In the ER she has been borderline hypoxic on room air however on ambulation her oxygen saturations dropped to 83%. Given the appearance on CT scan, elevated CRP and hypoxia on exertion she was referred to medicine for admission ongoing management of COVID-19 pneumonia. Principal Diagnosis severe acute hypoxic respiratory failure 2nd to COVID-19 pneumonia Discharge Exam Constitutional no acute distress and no altered mental status ENMT external ear and nose normal, oropharynx normal Respiratory Auscultation: + diminished lung sounds (bases); no crackles and no wheezes Cardiovascular Rate/Rhythm: regular rate and regular rhythm Heart Sounds: normal S1 and normal S2; no murmur Vessels: posterior tibial pulses present and dorsalis pedis pulses present; no JVD Extremities: no edema Gastrointestinal (Abdomen) normal bowel sounds, soft, nontender, no hepatosplenomegaly Skin no rashes, warm and dry Psychiatric A+Ox3, euthymic affect Discharge Data Allergies Allergy/AdvReac Type Severity Reaction Status Date / Time No Known Drug Allergies Allergy Verified 10/03/20 09:20 Procedures Performed 1. Tocilizumab infusion 2. Two-step ambulatory oxygen test -- 2 liters of NC O2 needed with ambulation/activity Ordered Studies Chest X-Ray 09/18/20 09:36 XR chest 1V portable HISTORY: 60 years-old Female cough, fevers, +COVID acute cough with fever. COVID Positive. COMPARISON: Chest radiograph 01/06/2016 TECHNIQUE: Portable AP view of the chest FINDINGS: Cardiac silhouette is upper limits of normal in size. Right greater than left b ilateral interstitial and ill-defined airspace opacities are noted within a peripheral predominant distribution. No pneumothorax or pleural effusion. Bones appear grossly intact. IMPRESSION: Bilateral pulmonary opacities suggestive of multifocal pneumonia, likely viral etiology. ACT 112: Negative or not required by law. The above report was generated using voice recognition software. It may contain grammatical, syntax or spelling errors. Electronically signed by: Chintan Alarcon M.D. 09/18/2020 10:10 AM Chest CTA 09/18/20 12:52 CT ANGIOGRAM OF THE CHEST CLINICAL HISTORY: Hypoxia. Shortness of breath. Covid positive patient. COMPARISON STUDY: Chest x-ray dated 09/18/2020 TECHNIQUE: Following the IV administration of 115 mL of Optiray, CT angiogram of the thorax was performed from the thoracic inlet to the lung bases utilizing the pulmonary embolus protocol. Images are reviewed in the axial, sagittal, and coronal planes. IV contrast was administered without complication. MIP imaging was performed. A dose lowering technique was utilized adhering to the principles of ALARA. CT DOSE: 549.76 mGycm FINDINGS: There is mild hepatic steatosis. There is small hiatal hernia. There are mildly enlarged mediastinal and hilar lymph nodes, likely reactive. There was no evidence of thoracic aortic dilatation. There are no pulmonary artery filling defects to indicate acute pulmonary embolism. The study is limited from a technical standpoint due to respiratory motion artifact. No pleural effusions are visualized. There are bilateral multifocal groundglass pulmonary opacities consistent with a multifocal pneumonia. Findings are consistent with the clinical diagnosis of Covid 19 pneumonia. IMPRESSION: 1. No evidence of acute pulmonary embolism given the technical limitations of a motion degraded study 2. Bilateral multifocal groundglass pulmonary opacities consistent with a multifocal pneumonia 3. Mild mediastinal and hilar lymphadenopathy likely reactive ACT 112: Negative or not required by law. Electronically signed by: Yves Salvador M.D. 09/18/2020 1:37 PM Chest X-Ray 09/21/20 06:00 XR chest 1V portable CLINICAL HISTORY: Hypoxia. Shortness of breath COMPARISON STUDY: 09/18/2020 FINDINGS: The cardiac and mediastinal contours remain stable. There is mild progression in the bilateral pulmonary airspace opacities consistent with a multifocal pneumonia. The heart is borderline enlarged. There are no significant pleural effusions.[ IMPRESSION: Slight progression in the bilateral multifocal airspace opacities consistent with a multifocal pneumonia ACT 112: Negative or not required by law. Electronically signed by: Yves Salvador M.D. 09/21/2020 8:01 AM Chest X-Ray 09/23/20 14:38 XR chest 1V portable CLINICAL HISTORY: covid 19 COMPARISON STUDY: Chest CT September 18, 2020. Chest radiograph September 21, 2020. FINDINGS: Lung volumes are normal. There is no pneumothorax or pleural effusion. Cardiomediastinal silhouette is stable. Moderate bilateral airspace opacities have slightly improved. IMPRESSION: Slight improvement in moderate bilateral airspace opacities consistent with multifocal pneumonia. ACT 112: Negative or not required by law. Electronically signed by: Zi Bryan M.D. 09/23/2020 3:15 PM Hospital Course (1) Pneumonia due to COVID-19 virus: Severe COVID disease/pneumonia with resulting severe acute hypoxic respiratory failure. She was initiated on dexamethasone therapy at time of presentation. Unfortunately, the patient's hypoxia worsened rapidly following admission. About 48 hours into her stay she was already requiring high-flow nasal cannula oxygen. She was deemed a candidate for Tocilizumab therapy and received such on 09/20/20 after approval by pulmonary. Over the next 8 days she required copious amounts of oxygen via high-flow nasal cannula. She did, however, make slow/steady improvement in her pulmonary symptoms and overall constitution. She was diligent about self-proning and aggressive pulmonary toilet. With the above measures her oxygen was finally weaned later in her stay. By the morning of hospital discharge her O2 sats were stable in room air. 2-step ambulatory oxygen test did show the need for 2 L of NC O2 with ambulation/activity only. The patient had no evidence of complicating PE or CHF while here. She completed, in total, 10 full days of dexamethasone therapy while hospitalized. She also completed a 5-day course of zithromax. At time of hospital discharge she was felt NOT to be contagious to others (she was nearly 20 days into her illness) and thus isolation will not be necessary at home. I recommended follow-up with her PCP within a week of discharge. Also advised follow-up with [facility] given the severity of her il lness and need for ongoing O2 therapy at home. Finally, due to higher risk of VTE, I recommended a 30-day course of xarelto 10mg daily for VTE prevention. (2) Acute respiratory failure with hypoxia: 2nd severe COVID-19 pneumonia. RESOLVING. See above in "pneumonia." O2 was weaned off by time of discharge (at rest) but she will need 2 liters of NC O2 with ambulation at home. (3) Transaminitis: 2nd COVID-19 infection. mild and resolved prior to discharge. OK to safely resume statin. (4) Thrombocytosis: Likely reactive to COVID-19 virus itself. platelet count on 09/27/20 was 603. simply trend as outpatient. she is already on asa 81mg daily. (5) DVT prophylaxis: Lovenox 40mg SQ BID was used during the hospitalization for VTE prevention. Given the severity of her illness and heightened VTE risk I advised a 30-day course of oral xarelto 10mg daily to be taken at home. She will also take a PPI daily for 30 days for GI prophylaxis in the setting of aspirin with xarelto use. The PPI can be stopped after the xarelto course is complete. (6) Hypertension: Continue metoprolol succinate 50 mg p.o. daily and Lisinopril 5mg daily. BPs controlled while here. (7) Anxiety: Continue BuSpar 15 mg p.o. twice daily prn. (8) Hyperlipidemia: resumed zocor later in her stay since her transaminases normalized. (9) Hypokalemia: repleted and normal prior to discharge. (10) History of gastric ulcer: cont PPI once daily as prophylaxis in setting of concomitant aspirin with xarelto use post-discharge. Total Time Total Time Spent Total Time Spent (In Minutes): 45 Total Time Includes: Examination of the Patient, Discharge Planning, Medication Reconciliation and Communication With Other Providers Discharge Plan Discharge Items Patient Disposition: Home - Self-Care Reason For Visit: COVID-19 PNEUMONIA Discharge Diagnosis: 1. SEVERE COVID-19 pneumonia - resolving 2. Acute hypoxic respiratory failure due to #1 - improved, but you will need home oxygen 2 liters with activity/ambulation for a period of time after discharge 3. mild increase in liver function tests - due to COVID-19 infection - resolved 4. mild elevation in platelet count - also likely due to COVID-19 infection - a follow-up CBC blood count will be needed but the level is NOT in a dangerous level Condition on Discharge: Good Activity: As commented below Activity Comment: gradually increase your activity over the next 1-2 weeks Sexual Activity: Wait until after follow-up appointment Exercise/Sports: Wait until after follow-up appointment Driving/Machine Use: Resume 3 days after discharge Non-emergency contact: Primary Care Provider and Storehouse Clerk Call non-emergency contact if: you have any medication questions, your symptoms worsen and you have a fever Follow-up/Referrals: [facility] [place] [facility] [Provider Group] (We will arrange a follow-up appointment for you with [facility] to ensure ongoing recovery from your COVID-19 pneumonia. ) Marisabel Martins, [Primary Care Provider] - (see Dr Martins within 5-7 days ) Diet: Heart Healthy Addtl Attending Provider Instructions: Mrs Santos, You were admitted for severe COVID-19 pneumonia. You required a significant amount of oxygen throughout your stay due to the severity of your illness. In addition to oxygen you received Tocilizumab (an immune-based treatment for COVID) along with IV steroids. You completed your full 10-day course of steroid while here. With the above and time your symptoms improved and your oxygen was weaned. On day of discharge your oxygen levels on your finger are NORMAL at rest! A formal walking test on day of discharge, however, showed that you need 2 liters of nasal cannula oxygen when you walk/ambulate. You will especially need the oxygen when you leave your home for appointments, etc. Hopefully we can wean the oxygen off fully in the next 2-3 weeks. Recommendations - 1. For cough - * benzonatate (tessalon) pearles 100mg every 8 hours as needed * [id number] mucinex up to 1200mg twice daily as needed 2. For prevention of DVT blood clots - * take Xarelto 10mg once daily starting 09/29/20; take for 30 days then stop * you can continue your aspirin during this time period (81mg daily) 3. For prevention of stomach ulcers and irritation from the Xarelto (with aspirin) use - * omeprazole 40mg once daily every morning for 30 days then stop * start this tomorrow morning 4. Do not allow smokers in your home while using oxygen. 5. Continue to prone ("tummy time") over the next 1-2 weeks to hasten your recovery. 6. Continue your incentive spirometry device and flutter valve for 1-2 weeks. 7. Listen to your body as you will have a period of recovery ahead. It is common to have fatigue, need for more frequent naps, "brain fog", shortness of breath, cough, etc during your recovery period. It is important to rest when you are tired. Eat a diet high in antioxidants (fruits and veggies!) and be sure to stay well-hydrated. The above symptoms may last 1-2 weeks or much longer. 8. You are no longer contagious to others. You do NOT need to isolate in your home. You can leave your home (with mask on) as desired. However, I would limit trips outside the home over the next week during your "transition" period from the hospital. You are going to need extra rest. 9. Please talk to your family doctor about the COVID vaccine. Recommend waiting about 3 months to get it. Follow-up - see separate section Return to [facility] if - * you have fevers over 100 degrees * you have worsening shortness of breath * you have chest pains * you have severe diarrhea * you have bleeding from any location (gastrointestinal, nose bleeding, etc) * any other concerns God bless you and feel better soon!! -Dr Klein Addtl Telegraph Printer Mechanic Provider Instructions: XARELTO Instructions: Xarelto is an anticoagulant. Anticoagulants thin your blood to help prevent blood clots in your legs and lungs. COVID-19 "thickens" the blood leading to an increased risk in developing blood clots during the recovery phase. * You should take your medication exactly as directed. * Never skip a dose. * Never take a double dose. If you miss a dose, take it as soon as you remember. Call your Primary Care doctor if you experience any of the following: * Swelling or Pain in your leg * Sudden, continuous pain deep in a muscle * Pain that worsens when you are active or when you stand still for a long time * Chest Pain * Sudden Shortness of Breath * Rapid or pounding heart beat * Fainting * Dizziness * Cough with blood or bloody sputum * Sweating more than normal * Bruises * Heavy or uncontrolled bleeding * Blood in your urine, stool or vomit * Black or tarry stools * Heavy nose bleeding Caring for Your Self at Home: * Avoid sitting, standing or lying down for long periods without moving your legs and feet * When traveling by car, stop to get out and move around at least once every 3 hours * On long airplane, train or bus rides, get up and move around when possible * If you can't get up, wiggle your toes and tighten your calves to keep your blood moving Pending Studies at Discharge: No Stand-Alone Forms: My [facility] Carnival, Smoking Cessation Medications and DC Order Prescriptions: New (DME) Oxygen Home Liters Per Minute See Rx Instructions .ROUTE .MEDSUPPLY Qty: 1 RF: 0 diclofenac sodium [Voltaren] 1 % Gel 4 g EXT QID PRN (Reason: muscle pain or joint pain) Qty: 50 RF: 0 omeprazole 40 mg capsule,delayed release(DR/EC) 40 mg PO DAILY Qty: 30 RF: 0 benzonatate [Tessalon Perles] 100 mg Capsule 100 mg PO TID PRN (Reason: cough) Qty: 20 RF: 0 guaifenesin [Mucinex] 600 mg Tablet Extended Release 12hr 1,200 mg PO Q12 PRN (Reason: cough) Qty: 30 RF: 0 Xarelto 10 mg tablet 10 mg PO DAILY Qty: 30 RF: 0 Continued aspirin [Adult Low Dose Aspirin] 81 mg tablet,delayed release (DR/EC) 81 mg PO HS RF: 0 omega-3 fatty acids 1 tab PO DAILY RF: 0 fluticasone propionate 50 mcg/actuation spray,suspension 1 sprays INTNAS BID RF: 0 Discontinued azithromycin 250 mg tablet See Rx Instructions PO .COMPLEX Qty: 6 RF: 0 No Action buspirone 15 mg tablet 15 mg PO BID Qty: 180 RF: 1 lisinopril 5 mg tablet 5 mg PO DAILY Qty: 90 RF: 1 metoprolol succinate 50 mg tablet extended release 24 hr 50 mg PO DAILY Qty: 90 RF: 1 simvastatin 20 mg tablet 20 mg PO QPM Qty: 90 RF: 1 Discharge Orders: Discharge Order (Routine); Ordered 09/28/20 Ordered By: Mike Psacal/Other Patient Handouts: 2019-nCoV, COVID-19 Prevention, COVID-19 Home Care, Proning COVID-19, Disinfecting Your Home of COVID-19, How COVID-19 Spreads Admission Data Admit Date/Time: 09/18/20 14:52 Attending Provider: Mike Klein Admit Provider: Mike Aburto Primary Care Provider: Marisabel Martins Other Providers: Mike Aburto Other Interventions: Discharge Summary Assessment (RN) Last Done: 09/28/20 12:33 Coding Level of Care Code D/C Day Management >30 mins Diagnoses Pneumonia due to COVID-19 virus U07.1; J12.82 Acute respiratory failure with hypoxia J96.01 Transaminitis R74.01 Thrombocytosis D47.3 DVT prophylaxis Z29.9 Hypertension I10 Anxiety F41.9 Hyperlipidemia E78.5 Hyperlipidemia type: unspecified Hypokalemia E87.6 History of gastric ulcer Z87.19
== END 2020-09-28 15:58 | disposition home or self-care (01) ==
LOC: ED 08:37 → SUATTDRO 14:52 → 2E 14:52